=== PATIENT | female | born 1975 | race Caucasian/White ===

== ENCOUNTER 2019-08-22 01:15 | Day surgery (SDC) | payer BC, SELFPAY ==
[2019-08-16 13:34] VITALS: BMI 29.5
[2019-08-22 08:09] VITALS: BP 118/80; PULSE 83; RESP 16; TEMP 36.6; O2SAT 95; BMI 29.9
--- NOTE | 2019-08-22 08:22 | P.PNAN_ITS ---
Anes - Initial Pre Proc Eval Procedure: Operation Date: 08/22/19 09:30 Proposed Procedures p Esophagogastroduodenoscopy - Pedro Thacker MD Date/Time: 08/22/19 08:22 Surgeon: Pedro Thacker MD Pre Op Diagnosis: Gerd/ Reflux Patient Data Age: 44 Gender: F Height: 1.63 m Weight: 78 kg Allergies Allergy/AdvReac Type Severity Reaction Status Date / Time morphine Allergy Unknown SERVERE Verified 08/16/19 13:01 INSTANT BOWDEN Penicillins Allergy Unknown THROAT Verified 04/02/16 14:42 ITCHING AND SWEELLING prochlorperazine Allergy Unknown HIVES Verified 04/02/16 14:42 Home Medications Medication Instructions Recorded Confirmed Type albuterol sulfate 2 puff INHALATION QID PRN 06/27/19 08/16/19 History ergocalciferol (vitamin D2) 50,000 unit PO 2XW 06/27/19 08/16/19 History spironolactone 100 mg PO DAILY 06/27/19 08/16/19 History tapentadol [Nucynta] 50 mg PO BID PRN 06/27/19 08/16/19 History benralizumab [Fasenra] 30 mg SUBCUT DIRECTED 08/16/19 08/16/19 History cetirizine [Zyrtec] 10 mg PO DAILY 08/16/19 08/16/19 History clotrimazole-betamethasone 1 - 2 applic TOPICAL 2XW PRN 08/16/19 08/16/19 History dextroamphetamine-amphetamine 30 mg PO DAILY 08/16/19 08/16/19 History fluticasone propion-salmeterol 1 inh INHALATION BID 08/16/19 08/16/19 History [Advair Diskus] ipratropium-albuterol 3 ml INHALATION Q4H PRN 08/16/19 08/16/19 History montelukast [Singulair] 10 mg PO DAILY 08/16/19 08/16/19 History paroxetine HCl [Paxil] 20 mg PO HS 08/16/19 08/16/19 History trazodone 25 mg PO PRN PRN 08/16/19 08/16/19 History Patient hx anesthesia problems: none Family hx anesthesia problems: none [facility] Past Medical History Medical History (Updated 08/22/19 @ 08:24 by Phil Raza MD) Asthma Endometriosis Gastroesophageal reflux disease Hemorrhoids Surgical History Surgical History (Updated 08/22/19 @ 08:24 by Phil Raza MD) History of Juju fundoplication JUJU FUNDOPLICATION X2 MOST RECENT 2016 Social History Social History Smoking status: Never smoker Alcohol intake: current Gender identity (if verbalized by the patient): Female Anes - Eval Final PreProcedure Day of Procedure 08/22/19 08:22 Patient weight: overweight Heart: regular rate and rhythm Lungs: clear to auscultation and normal air movement Airway: Mallampati scale class II Neurological: alert and oriented Last oral intake: >/= 8 hours ASA classification: III Emergent: no Anesthetic plan: proceed Anesthesia type and monitoring: general GIVS Informed Consent: The patient's anesthetic plan and its attendant risks and benefits were discussed with the patient/family/POA. Questions were solicited and answers provided to the satisfaction of the patient/family/POA.
[2019-08-22] MEDS: LACTATED RINGERS 1,000 ML 150 ML IV CONT (08:53)
--- NOTE | 2019-08-22 09:15 | PM.HPGS ---
History of Present Illness History of Present Illness Consent: Risks, benefits, and alternatives have been discussed and questions answered. Patient agrees to proceed with procedure. Chief complaint: Gerd/ Reflux Narrative: Sayda Campuzano is a 44 year old female with experiencing difficulty with swallowing. She has had a fundoplication twice. She is known to have an esophageal diverticulum and feels that food may be getting caught there. At times drinking some the cold will hang up and she will expect rate which she swallow. Milkshakes give her difficulty. At times particles of food or scans of grapes can be expectorated along with some saliva. PMFSH Past Medical History Medical History Asthma Endometriosis Gastroesophageal reflux disease Hemorrhoids Surgical History Surgical History History of Julián fundoplication JULIÁN FUNDOPLICATION X2 MOST RECENT 2016 Family History Family History Other Family history of arthritis Family history of mental disorder Social History Social History Smoking status: Never smoker Alcohol intake: current Gender identity (if verbalized by the patient): Female Meds Home Medications and Allergies Home Medications Medication Instructions Recorded Confirmed Type albuterol sulfate 2 puff INHALATION QID PRN 06/27/19 08/16/19 History ergocalciferol (vitamin D2) 50,000 unit PO 2XW 06/27/19 08/16/19 History spironolactone 100 mg PO DAILY 06/27/19 08/16/19 History tapentadol [Nucynta] 50 mg PO BID PRN 06/27/19 08/16/19 History benralizumab [Fasenra] 30 mg SUBCUT DIRECTED 08/16/19 08/16/19 History cetirizine [Zyrtec] 10 mg PO DAILY 08/16/19 08/16/19 History clotrimazole-betamethasone 1 - 2 applic TOPICAL 2XW PRN 08/16/19 08/16/19 History dextroamphetamine-amphetamine 30 mg PO DAILY 08/16/19 08/16/19 History fluticasone propion-salmeterol 1 inh INHALATION BID 08/16/19 08/16/19 History [Advair Diskus] ipratropium-albuterol 3 ml INHALATION Q4H PRN 08/16/19 08/16/19 History montelukast [Singulair] 10 mg PO DAILY 08/16/19 08/16/19 History paroxetine HCl [Paxil] 20 mg PO HS 08/16/19 08/16/19 History trazodone 25 mg PO PRN PRN 08/16/19 08/16/19 History Allergies Allergy/AdvReac Type Severity Reaction Status Date / Time morphine Allergy Unknown SERVERE Verified 08/22/19 08:47 INSTANT BOWDEN Penicillins Allergy Unknown THROAT Verified 08/22/19 08:47 ITCHING AND SWEELLING prochlorperazine Allergy Unknown HIVES Verified 08/22/19 08:47 Vital Signs Vital Signs - 24 hr 08/22/19 08:09 Temperature 36.6 C Pulse Rate 83 Respiratory Rate 16 Blood Pressure 118/80 Pulse Oximetry 95 Exam Const: General: alert Orientation/consciousness: patient oriented x3 Resp: Auscultation: clear to auscultation bilaterally Cardio: Rhythm: regular rhythm GI: GI Palp: Yes Soft to palpation and No Tenderness to palpation present (GI) Neuro: General: patient oriented x3 Assessment and Plan Assessment and plan (1) Dysphagia: Code(s): R13.10 - Dysphagia, unspecified Status: Acute Assessment and Plan: EGD with possible biopsy or dilatation or cautery.
[2019-08-22] MEDS: BENZOCAINE (*SP) 60 ML SPRAY CAN (HURRICAINE) 1 SPRAY MUCOUS MEM (09:26)
[2019-08-22 09:37] VITALS: BP 106/73; PULSE 80; RESP 17; O2SAT 99
[2019-08-22 09:47] VITALS: BP 118/77; PULSE 77; RESP 22; O2SAT 99
[2019-08-22 09:57] VITALS: BP 110/73; PULSE 73; RESP 19; O2SAT 100
== END 2019-08-22 10:08 | disposition home or self-care (01) ==
PROVIDERS: PCP Physician Assistant; Visit Provider Internal Medicine Gastroenterology
PROC: 0DJ08ZZ Inspection of Upper Intestinal Tract, Via Natural or Artificial Opening Endoscopic (ICD-10-PCS; CPT 43235; principal; 2019-08-22 09:30)
DX: K22.5 Diverticulum of esophagus, acquired (principal); K21.9 Gastro-esophageal reflux disease without esophagitis; Z98.84 Bariatric surgery status; J45.909 Unspecified asthma, uncomplicated
CPT/HCPCS: 43239; 88305; J2704; J7120

== ENCOUNTER → 2019-08-28 08:53 | Outpatient (CLI) | payer BC, SELFPAY ==
--- NOTE | ~2019-08-28 | US_ITS ---
US breast LT limited DATE: 08/28/2019 09:08 INDICATION: Six-month follow-up of probable benign finding 9:00 1 cm from nipple TECHNIQUE: High-resolution ultrasound imaging and color flow signal imaging targeted at 9:00 1 cm fro m nipple COMPARISON: 03/05/2019 limited left breast ultrasound FINDINGS: There is a stable circumscribed benign appearing likely intramammary lymph node at 9:00 1 c m from nipple, without significant change since 03/05/2019. IMPRESSION: BI-RADS Category 2: Benign Recognition: Routine annual mammographic screening Reviewed, dictated and finalized at [facility]. Reviewed, dictated and finalized at [facility]. ICE/HOME HEALTH AIDE
== END ==
PROVIDERS: PCP Physician Assistant; Visit Provider Obstetrics & Gynecology
DX: R92.8 Other abnormal and inconclusive findings on diagnostic imaging of breast (principal)
CPT/HCPCS: 76642

== ENCOUNTER → 2021-01-27 16:41 | Outpatient (CLI) | payer BC, SELFPAY ==
--- NOTE | ~2021-01-27 | XR_ITS ---
EXAMINATION: XR shoulder RT min 2V EXAM DATE: 01/27/2021 16:58 INDICATION: Primary osteoarthritis of right shoulder . TECHNIQUE: The following right shoulder projections obtained: frontal projection with internal rotati on, frontal projection with external rotation, Grashey, and axillary (4+ views). There is no prior s tudy for comparison. FINDINGS: No evidence of right shoulder rotator cuff calcific tendinosis. There is no glenohumeral joint, mild acromioclavicular joint primary osteoarthritis. There are no acute fractures or dislocat ions identified. There is no subcutaneous gas. The soft tissue is unremarkable. There are no radi opaque foreign bodies. IMPRESSION: Mild right acromioclavicular joint osteoarthritis. Reviewed, dictated and finalized at [facility].
== END ==
PROVIDERS: PCP Physician Assistant
DX: M19.011 Primary osteoarthritis, right shoulder (principal)
CPT/HCPCS: 73030

== ENCOUNTER 2022-09-24 00:48 | Day surgery (SDC) | payer BC, SELFPAY ==
[2022-09-15 13:39] VITALS: BMI 33.0
--- NOTE | 2022-09-15 14:14 | PC.NURSE ---
Report to the Outpatient Waiting Room, entrance under the green pavilion located off [facility], at time _0630 on date _09/24/22 . Planned Procedure Time: 0830 . Time changes happen often and if your time is changed the preop area will call you the afternoon before. - You and your visitor will be asked to self-screen and do not enter if you have any COVID symptoms. - Only one visitor is requested with a max of two and NO children visitors are allowed at this time. - The patient visitor may be requested to leave or wait in car when not with patient due to distancing restrictions. - A mask is optional within the hospital at this time. Patients may have clear liquids (water, carbonated beverages, clear teas, apple juice) until 3 hours prior to surgery with a maximum of 20 ounces. - No food from midnight until time of surgery - Take the following medications with a SIP of water the morning of surgery: _PAXIL, NUCYNTA, ALBUTEROL PRN, MUSCLE RELAXANT IF NEEDED DO NOT STOP ANY OF YOUR OTHER PRESCRIPTION MEDICATIONS PRIOR TO SURGERY ?EXCEPT THE FOLLOWING Medications to discontinue per physician N/A Date to take last dose___N/A Please no make-up, nail malay, hairspray, perfume, deodorant, or body powder the day of surgery. No jewelry (including any body piercings) or valuables the day of surgery, leave them at home. Please take a shower or bath the night before, or the morning of, surgery with an antibacterial soap. Wear comfortable, loose fitting clothing. Children are encouraged to wear pajamas. - Jewelry must be removed prior to entering the operating room. Rings and piercings that are not removed may be cut off. - The hospital will not accept responsibility for valuables. - Please leave all valuables, including medications, at home the day of surgery. If you are going home after surgery, a licensed marine engine driver must drive you home. - NO public transportation without another adult if you receive anesthesia. - We recommend that an adult stay with you for 24 hours following discharge. - We also recommend that you do not drive, make important decision, drink alcoholic beverages, or take any drugs that were not prescribed by your health care provider for at least 24 hours after your discharge time. Follow any additional instructions given to you from your surgeon. If you or anyone in your household have experienced Covid symptoms in the past week, please notify your surgeon or the nurse liaison at the phone number below for possible testing. Telephone instructions given to _SHARYN and asked if any additional questions and then verbalized understanding. Patient advised to call surgeon office or pre surgery nurse liaison [phone] if any additional questions.
--- NOTE | 2022-09-22 11:54 | PM.IMHP ---
H&P: HPI History of Present Illness Date/Time: 09/22/22 11:54 Chief Complaint: Pelvic pain Narrative: This 47-year-old female status post hysterectomy is admitted for diagnostic laparoscopy destruction of endometriosis and probable lysis of adhesions. She had pain discomfort dyspareunia for a time she has a history of endometriosis. Risks and benefits of this procedure reviewed including not exclusive of , aspiration, bleeding, transfusion, perforation under to bowel, bladder, ureters, or other internal organs with need for open laparotomy. She received the [employer] handout entitled laparoscopy. She had all questions answered. She asked to proceed PMFSH Past Medical History Medical History Asthma Diverticulosis Endometriosis Fibromyalgia Gastroesophageal reflux disease Hemorrhoids History of stress test (~07/2019) IBS (irritable bowel syndrome) Surgical History Surgical History History of cholecystectomy (~1999) History of endometrial ablation (~2008) with Tubal Ligation History of hysterectomy (~2012) History of Juju fundoplication (~1999) History of Juju fundoplication (~2015) History of sinus surgery (~2000) History of sinus surgery (~2002) Family History Family History Other Family history of arthritis Family history of mental disorder Social History Social History Smoking status: Never smoker Alcohol intake: current Substance use: never Substance use type: does not use Living arrangements: with family Gender identity (if verbalized by the patient): Female Spiritual care concerns: No Meds Home Medications and Allergies Home Medications Medication Instructions Recorded Confirmed Type albuterol sulfate 90 mcg/actuation 2 puff inhalation QID PRN 06/27/19 09/15/22 History aerosol inhaler Shortness Of Breath Or Wheezing tapentadol 50 mg tablet (Nucynta) 50 mg PO BID PRN Pain 06/27/19 09/15/22 History cetirizine 10 mg capsule (Zyrtec) 10 mg PO DAILY 08/16/19 09/15/22 History paroxetine HCl 20 mg tablet (Paxil) 40 mg PO HS 08/16/19 09/15/22 History cyclobenzaprine 10 mg tablet 10 mg PO TID PRN Spasms 12/17/21 09/15/22 History dextroamphetamine-amphetamine 30 30 mg PO DAILY 12/17/21 09/15/22 History mg tablet (Adderall) metaxalone 400 mg tablet 800 mg PO TID PRN Spasms 09/15/22 09/15/22 History Allergies Allergy/AdvReac Type Severity Reaction Status Date / Time morphine Allergy Severe Migraine Verified 09/15/22 14:13 povidone-iodine Allergy Severe Rash Verified 09/15/22 14:13 [From Betadine] yellow dye Allergy Severe Rash Verified 09/15/22 14:13 Penicillins Allergy Intermediate THROAT Verified 09/15/22 14:13 ITCHING AND SWELLING prochlorperazine Allergy Intermediate HIVES Verified 09/15/22 14:13 Exam Const: General: cooperative, healthy appearing, comfortable and well groomed Orientation/consciousness: oriented to person, oriented to place and oriented to time HENMT: Head: normal to inspection Resp: Effort & Inspection: normal respiratory effort Cardio: Rate: regular rate Rhythm: regular rhythm Heart sounds: S1 normal heart sound present and S2 normal heart sound present GI: Inspection: normal to inspection Auscultation: normal bowel sounds : Speculum Exam - Vagina: normal appearance of the vagina Speculum Exam - Cervix: normal appearance of the cervix and Cervix absent Bimanual exam- vagina & uterus: uterus absent Bimanual Exam- Adnexa, other: tender bilaterally Assessment and Plan Assessment and plan (1) Pelvic pain: Code(s): R10.2 - Pelvic and perineal pain Status: Acute (2) Endometriosis: Code(s): N80.9 - Endometriosis, unspecified Status: Acute Plan Laparoscopy/lysis o
[2022-09-24] VITALS (7 sets, daily range): BP systolic 105–128; BP diastolic 72–85; PULSE 71–80; RESP 12–18; TEMP 36.1–36.4; O2SAT 98–100
[2022-09-24] MEDS: LACTATED RINGERS 1,000 ML 30 ML IV CONT (07:00)
--- NOTE | 2022-09-24 07:08 | WPDHPUPDATE1 ---
History and Physical Update Update Date/Time: 09/24/22 07:08 History and Physical has been reviewed, including an updated exam of the patient. There are NO changes in the patient's condition. Risks, benefits, and alternatives have been discussed and questions answered. Patient agrees to proceed with procedure.
[2022-09-24] MEDS: ACETAMINOPHEN 500 MG TABLET 1000 MG PO (07:12)
[2022-09-24] MEDS: KETOROLAC 15 MG/ML VIAL (*BKC) IV PUSH (07:13)
--- NOTE | 2022-09-24 07:53 | WPDANESEPPF ---
Anes - Initial Pre Proc Eval Procedure: Operation Date: 09/24/22 08:30 Proposed Procedures p Diagnostic Laparoscopy with Cautery of Endometriosis, Lysis of Pelvic Adhesions - Simón Young MD Date/Time: 09/24/22 07:53 Surgeon: Simón Young MD Pre Op Diagnosis: Pelvic Pain, Endometriosis, Pelvic Adhesions Patient Data Age: 47 Gender: F Height: 1.63 m Weight: 87.5 kg Allergies Allergy/AdvReac Type Severity Reaction Status Date / Time morphine Allergy Severe Migraine Verified 09/15/22 14:13 povidone-iodine Allergy Severe Rash Verified 09/15/22 14:13 [From Betadine] yellow dye Allergy Severe Rash Verified 09/15/22 14:13 Penicillins Allergy Intermediate THROAT Verified 09/15/22 14:13 ITCHING AND SWELLING prochlorperazine Allergy Intermediate HIVES Verified 09/15/22 14:13 Home Medications Medication Instructions Recorded Confirmed Type albuterol sulfate 90 mcg/actuation 2 puff inhalation QID PRN 06/27/19 09/15/22 History aerosol inhaler Shortness Of Breath Or Wheezing tapentadol 50 mg tablet (Nucynta) 50 mg PO BID PRN Pain 06/27/19 09/15/22 History cetirizine 10 mg capsule (Zyrtec) 10 mg PO DAILY 08/16/19 09/15/22 History paroxetine HCl 20 mg tablet (Paxil) 40 mg PO HS 08/16/19 09/15/22 History cyclobenzaprine 10 mg tablet 10 mg PO TID PRN Spasms 12/17/21 09/15/22 History dextroamphetamine-amphetamine 30 30 mg PO DAILY 12/17/21 09/15/22 History mg tablet (Adderall) metaxalone 400 mg tablet 800 mg PO TID PRN Spasms 09/15/22 09/15/22 History hydrocodone 5 mg-acetaminophen 325 1 tablet PO Q4H PRN pain #20 tabs 09/24/22 Rx mg tablet Patient hx anesthesia problems: post op nausea/vomiting Family hx anesthesia problems: none Results Review: All pre-operative results and documents have been reviewed as part of the pre-operative evaluation. [facility] Past Medical History Medical History Asthma Diverticulosis Endometriosis Fibromyalgia Gastroesophageal reflux disease Hemorrhoids History of stress test (~07/2019) IBS (irritable bowel syndrome) Surgical History Surgical History History of cholecystectomy (~1999) History of endometrial ablation (~2008) with Tubal Ligation History of hysterectomy (~2012) History of Juju fundoplication (~1999) History of Juju fundoplication (~2015) History of sinus surgery (~2000) History of sinus surgery (~2002) Family History Family History Other Family history of arthritis Family history of mental disorder Social History Social History Smoking status: Never smoker Alcohol intake: current Substance use: never Substance use type: does not use Living arrangements: with family Gender identity (if verbalized by the patient): Female Spiritual care concerns: No Anes - Eval Final PreProcedure Day of Procedure 09/24/22 07:53 Patient weight: obese Heart: regular rate and rhythm Lungs: clear to auscultation Airway: Mallampati scale class II Neurological: alert and oriented Last oral intake: >/= 8 hours ASA classification: II Emergent: no Anesthetic plan: proceed Anesthesia type and monitoring: general ETT and standard monitoring Results Review: All pre-operative results and documents have been reviewed as part of the pre-operative evaluation. Informed Consent: The patient's anesthetic plan and its attendant risks and benefits were discussed with the patient/family/POA. Questions were solicited and answers provided to the satisfaction of the patient/family/POA.
--- NOTE | 2022-09-24 08:42 | W.PM.PROC2 ---
Procedure Note - Detailed Date of Procedure 09/24/22 Pre-op Diagnosis Pelvic Pain, Endometriosis, Pelvic Adhesions Post-op Diagnosis Other ( pelvic pain /right cyst/pelvic adhesions) Procedure Performed laparoscopic RSO lysis of adhesions Surgeon Simón Young MD Anesthesia General Indications this 47-year-old status post hysterectomy with severe pain despite Findings absent uterus cervix. Multiple adhesions across the vaginal cuff. Normal-appearing left ovary and tube, normal-appearing right tube and ovarian cyst Description of Procedure patient was draped sterile fashion placed in the dorsal lithotomy position she anesthesia with speculum placed in posterior fornix vagina. A sponge stick was placed the weighted speculum removed and the bladder emptied of clear urine. The weighted speculum was removed gloves were changed. An infraumbilical incision made the Veress needle passed in the abdomen. With CO2 gas to 15. 5Mm trocar advanced under direct visualization assuring injury. Patient placed in Trendelenburg and a suprapubic incision made. The 5mm trocar advanced under direct visualization assuring no injury. The right lower quadrant incision made the 10mm trocar advanced under direct visualization assuring no injury. The multiple adhesions were seen along the cuff especially to the left these were sharply dissected until the left ovary and tube could be seen and they appeared completely normal. The right ovary was very vascular and small ovarian cyst seen. The LigaSure was placed over the infundibulopelvic on the right clamped burned cut was then placed in Endo-Catch and removed through the abdomen. Irrigation undertaken until clear. Lower sites removed after gas removed from the abdomen. The upper site removed and the incisions closed with 4 Monocryl and glue. Instruments removed from the vagina. The patient was awakened and went to recovery in satisfactory condition. All sponge, needle, instrument counts were correct. There were no immediate complications Estimated Blood Loss 5 Drains No Packing No Pathology Yes Complications No immediate complications Condition Stable Disposition PACU
[2022-09-24] MEDS: fentaNYL CITRATE INJ (*CRX) 100 MCG/2 ML VIAL 25 MCG IV PUSH ×4 (09:17→09:35)
[2022-09-24] MEDS: oxyCODONE HCL (*CRX) 5 MG TAB IR PO (10:47)
== END 2022-09-24 11:10 | disposition home or self-care (01) ==
PROVIDERS: PCP Physician Assistant; Visit Provider Obstetrics & Gynecology
PROC: (CPT 49320; principal; 2022-09-24 08:30)
DX: R10.2 Pelvic and perineal pain (principal); N80.9 Endometriosis, unspecified; N94.10 Unspecified dyspareunia; N83.201 Unspecified ovarian cyst, right side; J45.909 Unspecified asthma, uncomplicated; K21.9 Gastro-esophageal reflux disease without esophagitis
CPT/HCPCS: 58661; 36415; 86850; 86900; 86901; 88305; A9270; J1100; J1885; J2250; J2405; J2704; J3010; J7030; J7120

== ENCOUNTER 2022-11-17 01:28 | Day surgery (SDC) | payer BC, SELFPAY ==
[2022-11-05 10:57] VITALS: BMI 32.5
--- NOTE | 2022-11-16 17:28 | PM.HPGS ---
History of Present Illness History of Present Illness Consent: Risks, benefits, and alternatives have been discussed and questions answered. Patient agrees to proceed with procedure. Chief complaint: pain, constipation Narrative: Sayda Campuzano is a 47 year old female referred for investigation of a change in bowel habits. She has also had lower abdominal pain. Recent laparoscopic examination for endometriosis revealed adhesions which were lysed Review of Systems Review of Systems: All systems reviewed & are unremarkable except as noted in HPI and below PMFSH Past Medical History Medical History Asthma Diverticulosis Dysphagia Endometriosis Fibromyalgia Gastroesophageal reflux disease Hemorrhoids History of stress test (~07/2019) IBS (irritable bowel syndrome) Surgical History Surgical History History of cholecystectomy (~1999) History of endometrial ablation (~2008) with Tubal Ligation History of hysterectomy (~2012) History of Juju fundoplication (~1999) History of Juju fundoplication (~2015) History of sinus surgery (~2000) History of sinus surgery (~2002) Family History Family History Other Family history of arthritis Family history of mental disorder Social History Social History Smoking status: Never smoker Alcohol intake: current Alcohol use details: rare Substance use: never Substance use type: does not use Living arrangements: with family Gender identity (if verbalized by the patient): Female Spiritual care concerns: No Meds Home Medications and Allergies Home Medications Medication Instructions Recorded Confirmed Type albuterol sulfate 90 mcg/actuation 2 puff inhalation QID PRN 06/27/19 11/05/22 History aerosol inhaler Shortness Of Breath Or Wheezing tapentadol 50 mg tablet (Nucynta) 50 mg PO BID PRN Pain 06/27/19 11/05/22 History cetirizine 10 mg capsule (Zyrtec) 10 mg PO DAILY 08/16/19 11/05/22 History paroxetine HCl 20 mg tablet (Paxil) 40 mg PO HS 08/16/19 11/05/22 History cyclobenzaprine 10 mg tablet 10 mg PO TID PRN Spasms 12/17/21 11/05/22 History dextroamphetamine-amphetamine 30 30 mg PO DAILY 12/17/21 11/05/22 History mg tablet (Adderall) metaxalone 400 mg tablet 800 mg PO TID PRN Spasms 09/15/22 11/05/22 History hydrocodone 5 mg-acetaminophen 325 1 tablet PO Q4H PRN pain #20 tabs 09/24/22 11/05/22 Rx mg tablet dicyclomine 20 mg tablet 20 mg PO TID #90 tabs 11/17/22 Rx Allergies Allergy/AdvReac Type Severity Reaction Status Date / Time morphine Allergy Severe Migraine Verified 11/17/22 11:20 povidone-iodine Allergy Severe Rash Verified 11/17/22 11:20 [From Betadine] yellow dye Allergy Severe Rash Verified 11/17/22 11:20 Penicillins Allergy Intermediate THROAT Verified 11/17/22 11:20 ITCHING AND SWELLING prochlorperazine Allergy Intermediate HIVES Verified 11/17/22 11:20 Exam Resp: Auscultation: clear to auscultation bilaterally Cardio: Rate: regular rate Rhythm: regular rhythm GI: GI Palp: Yes Soft to palpation and No Tenderness to palpation present (GI) Assessment and Plan Assessment and plan (1) Change in bowel habits: Code(s): R19.4 - Change in bowel habit Status: Acute Assessment and Plan: Colonoscopy with possible biopsy or polypectomy or cautery or injection of substances.
--- NOTE | 2022-11-17 10:34 | WPDANESEPPF ---
Anes - Initial Pre Proc Eval Procedure: Operation Date: 11/17/22 12:30 Proposed Procedures p Colonoscopy - Pedro Thacker MD Date/Time: 11/17/22 10:34 Surgeon: Pedro Thacker MD Pre Op Diagnosis: pain, constipation Patient Data Age: 47 Gender: F Height: 1.63 m Weight: 86 kg Allergies Allergy/AdvReac Type Severity Reaction Status Date / Time morphine Allergy Severe Migraine Verified 11/17/22 11:20 povidone-iodine Allergy Severe Rash Verified 11/17/22 11:20 [From Betadine] yellow dye Allergy Severe Rash Verified 11/17/22 11:20 Penicillins Allergy Intermediate THROAT Verified 11/17/22 11:20 ITCHING AND SWELLING prochlorperazine Allergy Intermediate HIVES Verified 11/17/22 11:20 Home Medications Medication Instructions Recorded Confirmed Type albuterol sulfate 90 mcg/actuation 2 puff inhalation QID PRN 06/27/19 11/05/22 History aerosol inhaler Shortness Of Breath Or Wheezing tapentadol 50 mg tablet (Nucynta) 50 mg PO BID PRN Pain 06/27/19 11/05/22 History cetirizine 10 mg capsule (Zyrtec) 10 mg PO DAILY 08/16/19 11/05/22 History paroxetine HCl 20 mg tablet (Paxil) 40 mg PO HS 08/16/19 11/05/22 History cyclobenzaprine 10 mg tablet 10 mg PO TID PRN Spasms 12/17/21 11/05/22 History dextroamphetamine-amphetamine 30 30 mg PO DAILY 12/17/21 11/05/22 History mg tablet (Adderall) metaxalone 400 mg tablet 800 mg PO TID PRN Spasms 09/15/22 11/05/22 History hydrocodone 5 mg-acetaminophen 325 1 tablet PO Q4H PRN pain #20 tabs 09/24/22 11/05/22 Rx mg tablet Patient hx anesthesia problems: none Family hx anesthesia problems: none Results Review: All pre-operative results and documents have been reviewed as part of the pre-operative evaluation. [facility] Past Medical History Medical History (Updated 11/17/22 @ 10:36 by Phil Raza MD) Asthma Diverticulosis Dysphagia Endometriosis Fibromyalgia Gastroesophageal reflux disease Hemorrhoids History of stress test (~07/2019) IBS (irritable bowel syndrome) Surgical History Surgical History History of cholecystectomy (~1999) History of endometrial ablation (~2008) with Tubal Ligation History of hysterectomy (~2012) History of Juju fundoplication (~1999) History of Juju fundoplication (~2015) History of sinus surgery (~2000) History of sinus surgery (~2002) Family History Family History Other Family history of arthritis Family history of mental disorder Social History Social History Smoking status: Never smoker Alcohol intake: current Alcohol use details: rare Substance use: never Substance use type: does not use Living arrangements: with family Gender identity (if verbalized by the patient): Female Spiritual care concerns: No Anes - Eval Final PreProcedure Day of Procedure 11/17/22 10:34 Patient weight: obese Heart: regular rate and rhythm Lungs: clear to auscultation Airway: Mallampati scale class II Neurological: alert and oriented Last oral intake: >/= 8 hours ASA classification: II Emergent: no Anesthetic plan: proceed Anesthesia type and monitoring: general GIVS and standard monitoring Results Review: All pre-operative results and documents have been reviewed as part of the pre-operative evaluation. Informed Consent: The patient's anesthetic plan and its attendant risks and benefits were discussed with the patient/family/POA. Questions were solicited and answers provided to the satisfaction of the patient/family/POA.
[2022-11-17 11:21] VITALS: BP 139/85; PULSE 95; RESP 18; TEMP 36.1; O2SAT 97
[2022-11-17] MEDS: LACTATED RINGERS 1,000 ML 150 ML IV CONT (11:38)
[2022-11-17 12:45] VITALS: BP 107/76; PULSE 73; RESP 16; O2SAT 100
[2022-11-17 12:55] VITALS: BP 113/76; PULSE 76; RESP 20; O2SAT 100
[2022-11-17 13:05] VITALS: BP 119/82; PULSE 71; RESP 20; O2SAT 100
== END 2022-11-17 13:25 | disposition home or self-care (01) ==
PROVIDERS: PCP Physician Assistant; Visit Provider Internal Medicine Gastroenterology
PROC: 0DJD8ZZ Inspection of Lower Intestinal Tract, Via Natural or Artificial Opening Endoscopic (ICD-10-PCS; CPT 45378; principal; 2022-11-17 12:30)
DX: Z12.11 Encounter for screening for malignant neoplasm of colon (principal); K57.30 Diverticulosis of large intestine without perforation or abscess without bleeding; R19.4 Change in bowel habit; J45.909 Unspecified asthma, uncomplicated; K21.9 Gastro-esophageal reflux disease without esophagitis; M79.7 Fibromyalgia; K58.9 Irritable bowel syndrome, unspecified; E66.9 Obesity, unspecified; Z68.32 Body mass index [BMI] 32.0-32.9, adult; Z79.51 Long term (current) use of inhaled steroids; Z79.891 Long term (current) use of opiate analgesic
CPT/HCPCS: 45378; J2704; J7120

== ENCOUNTER 2024-02-08 15:12 | Outpatient (CLI) | payer BC, SELFPAY ==
--- NOTE | ~2024-02-08 | US_ITS ---
EXAMINATION:US venous doppler LE LT INDICATION:Left lower extremity pain TECHNIQUE: Multiple grayscale, color flow and Doppler images of the left lower extremity deep venous systems were obtained and reviewed. COMPARISON:No prior studies for comparison. FINDINGS: The common femoral, superficial femoral and popliteal veins demonstrate normal respiratory variation, augmentation and compressibility. Color flow is also seen within the posterior tibial, pe roneal, greater saphenous and profunda veins. IMPRESSION: 1: No lower extremity deep venous thrombosis. Reviewed, dictated and finalized at location B.
== END 2024-02-08 15:13 ==
LOC: MICIMG 15:13
PROVIDERS: PCP Physician Assistant; Visit Provider Physician Assistant
DX: M79.605 Pain in left leg (principal)
CPT/HCPCS: 93971

== ENCOUNTER 2024-04-05 15:46 | Outpatient (CLI) | payer BC, SELFPAY ==
--- NOTE | ~2024-04-05 | MM_ITS ---
EXAMINATION: MM screening kemi BI w edgard HISTORY: Screening mammogram TECHNIQUE: Craniocaudal and mediolateral oblique 3-D tomosynthesis images were obtained and synthetic 2-D images were generated. CAD analysis was submitted and interpreted. COMPARISON: 02/16/2019 BREAST PARENCHYMAL COMPOSITION:Not Dense. There are scattered areas of fibroglandular density. FINDINGS: No suspicious mass, calcification, or architectural distortion are identified in either johnnie ast to suggest malignancy. There has been no suspicious interval change. IMPRESSION: No mammographic evidence of malignancy. Recommend routine screening mammography in one year. BI-RADS Category 1: Negative Reviewed, dictated and finalized at location .
== END 2024-04-05 15:47 | disposition home or self-care (01) ==
LOC: ANHIMG 15:47
PROVIDERS: PCP Physician Assistant; Visit Provider Obstetrics & Gynecology
DX: Z12.31 Encounter for screening mammogram for malignant neoplasm of breast (principal)
CPT/HCPCS: 77063; 77067

== ENCOUNTER 2024-12-03 10:55 | Outpatient (CLI) | payer BC, SELFPAY ==
--- NOTE | ~2024-12-03 | MR_ITS ---
EXAMINATION: MR lumbar spine wo con DATE: 12/03/2024 11:27 INDICATION: Lumbar radiculopathy TECHNIQUE: Magnetic resonance imaging (MRI) of the lumbar spine was performed without intravenous con trast. Sequences included sagittal T2-weighted FSE, sagittal T2-weighted FS FSE, sagittal T1-weighted FSE, and axial T2-weighted FSE. COMPARISON: 10/22/2015 FINDINGS: Minimal upper lumbar levocurvature. Sagittal alignment is normal. Chronic appearing mild likely physi ologic anterior wedging at T11 and T12. Lumbar vertebral body heights are normal. There are Schmorl's nodes at several of the endplates from the inferior endplate of T10 through the superior endplate of L4. Normal marrow signal. Moderate disc height loss at T10-T11, mild disc height loss at T11-T12 and T12-L1 and mild right-sided disc height loss at L1-L2 and L2-L3. The conus medullaris terminates at L1. There is normal signal in the caudal spinal cord. Paravertebral soft tissues are unremarkable. Th e following disc levels are specifically discussed: T12-L1: Disc is bulging. There is bilateral facet joint osteoarthritis. There is no neural foraminal stenosis. There is mild central canal stenosis. L1-L2: Disc is mildly bulging. There is mild to moderate left and moderate right facet joint osteoart hritis. There is no neural foraminal stenosis. There is minimal central canal stenosis. L2-L3: Disc is mildly bulging. There is mild left and moderate right facet joint osteoarthritis. Ther e is left neural foraminal stenosis. There is mild central canal stenosis. L3-L4: Disc is mildly bulging with annular fissure. There is moderate bilateral facet joint osteoarth ritis. There is mild bilateral neural foraminal stenosis. There is mild central canal stenosis. L4-L5: Small right foraminal disc protrusion. There is moderate bilateral facet joint osteoarthritis. There is mild bilateral neural foraminal stenosis. There is mild central canal stenosis. L5-S1: The disc does not extend beyond the endplate margin. There is altered left and severe right fa cet joint osteoarthritis. There is no neural foraminal stenosis. There is no central canal stenosis. IMPRESSION: 1. Mild interval progression in sterile mild lumbar spondylosis. Reviewed, dictated and finalized at location A.
== END 2024-12-03 10:56 | disposition home or self-care (01) ==
LOC: GOSHIMG 10:55
DX: M43.06 Spondylolysis, lumbar region (principal)
CPT/HCPCS: 72148

== ENCOUNTER 2024-12-19 13:02 | Outpatient (CLI) | payer BC, SELFPAY ==
--- NOTE | ~2024-12-19 | XR_ITS ---
XR hip RT min 2V 12/19/2024 13:27 Indication: Right hip pain Procedure: 2 views right hip Comparison: No prior studies for comparison. Findings: No fracture, subluxation or dislocation. No soft tissue abnormality. No foreign bodies. The re is mild osteoarthritis of the right hip. Impression: 1: Mild osteoarthritis of the right hip. Reviewed, dictated and finalized at location A. Impression: 1: Mild osteoarthritis of the right hip.
== END 2024-12-19 13:03 | disposition home or self-care (01) ==
PROVIDERS: PCP Physician Assistant; Visit Provider Physician Assistant
DX: M16.11 Unilateral primary osteoarthritis, right hip (principal)
CPT/HCPCS: 73502

== ENCOUNTER 2024-12-24 11:54 | Outpatient (CLI) | payer BC, SELFPAY ==
--- NOTE | ~2024-12-24 | US_ITS ---
EXAMINATION: US soft tissue head and neck DATE: 12/24/2024 12:24 INDICATION: Neck swelling TECHNIQUE: Multiple ultrasound images of the neck were obtained. COMPARISON: None. FINDINGS: The right thyroid lobe measures 5.0 x 1.2 x 1.5 cm. The left thyroid lobe measures 4.3 x 1.4 x 1.6 c m. There are a few bilateral solid wider than tall hypoechoic nodules with smooth to ill-defined mar gins (TI-RADS 4, moderately suspicious , FNA if >=1.5 cm, annual followup is >=1 cm), the largest bethel suring 1.2 cm in maximal diameter in the left thyroid lobe. There is also a 4 mm TI RADS 1 anechoic c ystic nodule in the right thyroid lobe. Overall this appears without significant interval change sinc e prior study from 06/30/2016. There are a few normal-sized bilateral cervical lymph nodes the larges t on the left with maximal short axis diameter of 9 mm. IMPRESSION: 1. Stable appearance of a multinodular goiter with largest 1.2 cm Ti RADS 4 nodule for which annual u ltrasound would be recommended. 2. Multiple normal-sized bilateral cervical lymph nodes. No pathologically enlarged lymphadenopathy o r other abnormal masses or fluid collections identified. Reviewed, dictated and finalized at location A. IMPRESSION: 1. Stable appearance of a multinodular goiter with largest 1.2 cm Ti RADS 4 nod ule for which annual ultrasound would be recommended. 2. Multiple normal-sized bilateral cervical lymph nodes. No pathologically enla rged lymphadenopathy or other abnormal masses or fluid collections identified.
== END 2024-12-24 11:55 | disposition home or self-care (01) ==
LOC: MICIMG 11:55
PROVIDERS: PCP Physician Assistant; Visit Provider Physician Assistant
DX: E04.2 Nontoxic multinodular goiter (principal)
CPT/HCPCS: 76536

== ENCOUNTER 2025-03-30 11:56 | Emergency (ER) | payer BC, OTHER, SELFPAY ==
--- NOTE | ~2025-03-30 | CT_ITS ---
Sayda Campuzano EXAMINATION: CT abdomen pelvis w con COMPARISON: None HISTORY: R labial abscess, perianal/rectal abscess?GI bleed TECHNIQUE: Axial images were obtained through the abdomen, pelvis post administration of IV contrast. Oral contrast was also administered. Coronal reconstruction images were obtained from the axial views. CT scan performed using dose optimization techniques including the following automated exposure control; adjustment of mA and/or kV; use of iterative reconstruction technique. Automatic exposure control was used to reduce radiation dose. Permanent radiation dose record is archived to PACS. FINDINGS: CT abdomen: LUNG BASES: Lung bases demonstrates calcified right granuloma. LIVER: Portal vein patent. No intrahepatic biliary duct dilatation. SPLEEN: Unremarkable. KIDNEYS: Right Kidney: Unremarkable. No calculi. No hydronephrosis. Left Kidney: Unremarkable. No calculi. No hydronephrosis ADRENAL GLANDS: Unremarkable. PANCREAS: Unremarkable. GALLBLADDER/BILIARY: Postcholecystectomy. STOMACH AND ESOPHAGUS: Small hiatal hernia. Postsurgical changes in the stomach. BOWEL/MESENTERY: Moderate diverticulosis. No colitis or diverticulitis. Appendix normal. Mesentery normal. No dilated small bowel loops. ADENOPATHY/RETROPERITONEUM: No lymphadenopathy. AORTA/VASCULATURE: Normal caliber aorta. FREE FLUID OR FREE AIR: No free fluid.. CT pelvis: SOLID ORGANS/REPRODUCTIVE: Post hysterectomy. No adnexal mass. BLADDER: Mild hyperemia and thickening of the bladder wall consistent with mild cystitis. OSSEOUS STRUCTURES: No acute osseous abnormality.No suspicious lesions. OVERLYING SOFT TISSUES: Unremarkable. IMPRESSION: 1. There is no perineum abscess identified. No soft tissue abnormality appreciated. 2. Probable cystitis Reviewed, dictated and finalized at location A. IMPRESSION: 1. There is no perineum abscess identified. No soft tissue abnormality apprecia debbie. 2. Probable cystitis
[2025-03-30 12:02] VITALS: BP 120/88; PULSE 80; RESP 20; TEMP 36.8; O2SAT 98
--- OUTSIDE RECORDS SUMMARY | 2025-03-30 12:40 | XMS_ITS | Clinical Summary ---
Author Organization [facility] Address [address] [facility] [place] [address] Care Team Providers Care Fast Food Shift Supervisor Name Role Phone Mirlande Bedoya Primary Care Pr ovider Darwin Cavazos MD Unavailable [phone] Source Comments [facility],non-owned Affiliates and Associated Physician Practices is amultiple site organization consisting of ambulatory clinics and hospital sitesin [place], [place], [place] and [place]. This disclosure is being madepursuant to the Care Everywhere program and may not contain all information available regarding this patient. Last updated 18.[facility] Allergies Active Allergy Reactions Criticality Noted Date Comments Adhesive Sensitivity Unknown 11/05/2021 Povidone Iodine Rash Medium 01/26/2022 Prochlorperazine Urticaria,Rash Medium 01/26/2016 Lidocaine Unknown 11/05/2021 Morphine Headache Medium 01/26/2016 Penicillins Anaphylaxis,Urticari a,S welling High 01/26/2016 Throat swelling Tartrazine Unknown 12/22/2022 Yellow Dye Rash Medium 07/18/2019 Medications * Be aware that medications may not be up to date on this document. Alwaysverify current medications with the patient. clobetasol (TEMOVATE) 0.05 % solution Apply to affected area 2 times daily as needed 1 6 Active vitamin D, ergocalciferol, (DRISDOL) 41366 UNITS capsule Take 50,000 Units by mouth every 7 days 0 6 Active cetirizine (ZYRTEC) 10 MG tablet Take 1 (one) tablet by mouth once daily Active diclofenac sodium (VOLTAREN) 1 % gel once daily as needed 0 6 Active diphenhydrAMINE (BENADRYL) 25 MG tablet Take 1 (one) tablet by mouth every 6 hours as needed for Itching Active amphetamine-dext roamphetamine XR 24hr (ADDERALL XR) 30 MG capsule Take 1 (one) capsule by mouth once daily Active clotrimazole-bet amethasone (LOTRISONE) 1-0.05 % cream Apply to affected area 2 times daily as needed 2 Active montelukast (SINGULAIR) 10 MG tablet Take 1 (one) tablet by mouth every evening 1 Active omeprazole (PRILOSEC) 20 MG capsule Take 1 (one) capsule by mouth once daily Active NUCYNTA 50 MG tablet Take 1 (one) tablet by mouth every 12 hours as needed FOR PAIN 1 Active albuterol HFA (PROVENTIL; VENTOLIN; PROAIR) 108 (90 Base) MCG/ACT inhaler Inhale 2 (two) puffs by mouth every 4 hours as needed Active fluticasone-salm eterol (ADVAIR/WIXELA) 500-50 MCG/DOSE inhaler Inhale 1 (one) puff by mouth 2 times daily 2 Active albuterol-ipratr opium (DUO-NEB) 0.5-2.5 (3) MG/3ML nebulizer solution Inhale 3 mL by mouth 4 times daily 2 Active folic acid (Folvite) 1 MG tablet 1 (one) tablet 3 Active estradiol (Estrace) 1 MG tablet estradiol 1 mg tablet Active clonazePAM (KlonoPIN) 0.5 MG tablet TAKE 1 TABLET BY MOUTH ONCE DAILY AT NOON 3 Active Fasenra Pen 30 MG/ML auto-injector pen 3 Active Nutritional Supplements (VITAMIN D BOOSTER PO) Active PARoxetine (Paxil) 20 MG tablet Take 1 (one) tablet by mouth once daily 3 Active metaxalone (Skelaxin) 400 MG tablet Take 1 (one) tablet by mouth 2 times daily as needed Active zafirlukast (Accolate) 20 MG tablet Take 1 (one) tablet by mouth 2 times daily 3 Active valACYclovir (Valtrex) 1 GM tablet Take 1 (one) tablet by mouth 2 times daily FOR 10 DAYS 3 Active ammonium lactate (Lac-Hydrin) 12 % cream APPLY TWICE DAILY TO DRY SKIN AREAS NEEDED Active Atogepant (Qulipta) 60 MG TABS Take 1 (one) tablet by mouth once daily 3 Active Immunizations Immunization Administration Dates Next Due COVID ROXANNA PRIMARY 18+YR 09/22/2020 DTaP VACCINE IM (6wk-6yrs) 07/18/2002 INFLUENZA VACCINE, QUADR. (F LUZONE; FLULAVAL; FLUARIX; AFLURIA QUADRIVALENT; 6MO+), 0.5 ML (IIV4) 07/19/2019 PNEUMOCOCCAL PPSV23 01/08/2017,12/19/2016 Family History Medical History Relation Name Comments Arthritis Mother Diabetes Mother Other Mother ANKLOSING SPEND YLITIS Thyroid Disease Mother Relation Name Status Comments Mother Social History Tobacco Use Types Packs/Day Years Used Date Smoking Tobacco: Never Smokeless Tobacco: Never Alcohol Use Standard Drinks/Week Comments Not Currently 0 (1 standard drink = 0.6 oz pur e alcohol) rare PHQ-2 Answer Date Recorded PHQ2 TOTAL SCORE 2 01/26/2022 Comments No Sex and Gender Information Value Date Recorded Sex Assigned at Not on file Legal Sex Female 9:31 AM CDT Gender Identity Not on file Sexual Orientation Not on file Last Filed Vital Signs Vital Sign Reading Time Taken Comments Blood Pressure 118/76 06/06/2023 12:37 PM TACTICAL RESPONSE GROUP OFFICER Pulse 66 06/06/2023 12:37 PM TACTICAL RESPONSE GROUP OFFICER Temperature 36.4 C (97.6 F) 06/06/2023 12:37 PM TACTICAL RESPONSE GROUP OFFICER Respiratory Rate 18 09/19/2017 3:17 PM TACTICAL RESPONSE GROUP OFFICER Oxygen Saturation 98% 12/28/2022 2:23 PM CDT Inhaled Oxygen Concentration - - Weight 86.8 kg (191 lb 6.4 oz) 06/06/2023 12:37 PM TACTICAL RESPONSE GROUP OFFICER Height 162.6 cm (5' 4) 06/06/2023 12:37 PM TACTICAL RESPONSE GROUP OFFICER Body Mass Index 32.85 06/06/2023 12:37 PM TACTICAL RESPONSE GROUP OFFICER Plan of Treatment Health Maintenance Due Date Last Done Comments COLOGUARD (AGES 45-75) - COLON CA SCREENING 1973 COLON MONITORING 1973 COLONOSCOPY - COLON CA SCREENING 1973 CT COLONOGRAPHY - COLON CA SCREENING 1975 Colorectal Cancer Screening 1973 FIT - COLON CA SCREENING 1973 FLEX SIG - COLON CA SCREENING 1975 MAMMOGRAM 1975 Opioid Medication Agreement - Annual 1973 HIV SCREENING 1988 HEPATITIS C SCREENING 07/12/1991 HEPATITIS B VACCINE (1 of 3 - 19+ 3-dose series) 1992 DTAP/TDAP/TD VACCINES (2 - Tdap) 07/18/2012 07/18/2002 PNEUMOCOCCAL VACCINE 50+ (2 of 2 - PCV) 2023 01/08/2017, 12/19/2016 ZOSTER VACCINE (1 of 2) 2023 DEPRESSION SCREENING 07/18/2024 01/26/2022 LIPID TESTING 07/18/2024 07/18/2019 COVID-19 VACCINE ( season) 2025 08/04/2021, 02/12/2021, 01/09/2021, Additional history exists INFLUENZA VACCINE (#1) 2025 07/19/2019 SCREENING FOR DIABETES 06/28/2025 2, 11/06/2021, 05/18/2016 HIB VACCINE Aged Out No longer eligi ble based on patient's age to complete this topic HPV VACCINE Aged Out No longer eligi ble based on patient's age to complete this topic MENINGOCOCCAL (Group B) VACCINE SHARED DECISION-MAKING Aged Out No longer eligible based on patient's age to complete this topic MENINGOCOCCAL GROUPS A/C/Y/W VACCINE Aged Out No longer eligible based on patient's age to complete this topic Medical Devices Implanted Type Area Padder Device Identifier Shelf Expiration Date Model / Serial / Lot Graft Tissue Sis Es Prcn Aclr Clgn Mtrx Implanted:Qty: 1 on 05/27/2016 by Darwin Cavazos MD at [facility] [employer] 08/31/2017 [id number] / / [id number] Procedures Procedure Name Priority Date/Time Associated Diagnosis Comments COMPREHENSIVE METABOLIC PANEL 06/28/2022 8:13 AM TACTICAL RESPONSE GROUP OFFICER from Last 3 Months or Most Recently Relevant to Health Maintenance Results * COMPREHENSIVE METABOLIC PANEL (06/28/2022 8:13 AM TACTICAL RESPONSE GROUP OFFICER) Glucose 85 65 - 99 mg/dL [facility] Comment: Fasting reference interval BUN 9 7 - 25 mg/dL [facility] Creatinine 0.69 0.50 - 0.99 mg/dL [facility] eGFR by Cystatin C 107 > OR = 60 mL/min/1. 73m2 [facility] Comment: The eGFR is based on the CKD-EPI 2020 equation. To calculate the new eGFR from a previous Creatinine or Cystatin C result, go to https://www.kidney.org/professionals/ kdoqi/gfr%5Fcalculator BUN/Creatinine Ratio NOT APPLICABLE 6 - (calc) [facility] Sodium 138 135 - 146 mmol/L [facility] Potassium 4.5 3.5 - 5.3 mmol/L [facility] Chloride 103 98 - 110 mmol/L [facility] CO2 30 20 - 32 mmol/L [facility] Calcium 9.2 8.6 - 10.2 mg/dL [facility] Protein Total 6.6 6.1 - 8.1 g/dL [facility] Albumin 3.8 3.6 - 5.1 g/dL [facility] Globulin Total 2.8 1.9 - 3.7 g/dL (calc) [facility] Albumin/Globuli n Ratio 1.4 1.0 - 2.5 (calc) [facility] Bilirubin Total 0.4 0.2 - 1.2 mg/dL [facility] Alkaline Phosphatase 57 31 - 125 U/L [facility] AST 10 10 - 35 U/L [facility] ALT 9 6 - 29 U/L [facility] Comment: Test Performed at: [facility] [address] [place] [address] LINDSEY MONTANA DO,MPH 06/28/2022 8:13 AM TACTICAL RESPONSE GROUP OFFICER 06/28/2022 8:14 AM TACTICAL RESPONSE GROUP OFFICER us Morales Alcazar MD LAB - CHEMISTRY ORDERABLES Final Result [facility] [id number] [place] [address] from Last 3 Months or Most Recently Relevant to Health Maintenance Insurance [employer] Advance Directives * Full Code (Latest Code Status on File) Date Activated Date Inactivated Comments 05/27/2016 12:35 PM 05/28/2016 3:28 PM Care Teams Fast Food Shift Supervisor Relationship Specialty Start Date End Date Mirlande Bedoya PA [address] [place] [address] PCP - General Physician Qa Engineer 01/26/16 Darwin Cavazos MD [facility] [address] [place] [address] Surgery 04/26/16
--- OUTSIDE RECORDS SUMMARY | 2025-03-30 12:40 | XMS_ITS | Clinical Summary ---
Author Organization [address] Address [address] [place] [address] Care Team Providers Care Non Emergency Services Ambulance Driver Name Role Phone Henrry Mirlande HOWARD Primary Care Pr ovider Allergies Active Allergy Reactions Criticality Noted Date Comments Adhesive Unknown 03/06/2024 Fd And C No.5 (Tartrazine) Unknown 3 Lidocaine Unknown 11/05/2021 Morphine Headache Medium 06/20/2014 Penicillins Hives,Other (See comments),Anaphylax is,Headache,Swellin g,Urticaria High 10/17/2012 Reaction: Unknown, , Reaction: throat itches, swells, Throat swelling Povidone-Iodine Itching,Rash,Swelli ng Medium 01/26/2022 Prochlorperazine Hives,Other (See comments),Rash,Urti caria Medium 10/17/2012 Reaction: unknown, , Reaction: unknown, , Reaction: Hives, rash, , Reaction: Hives, rash, Yellow Dye Itching,Palpitation s,Rash,Swelling Medium 07/18/2019 Medications EPINEPHrine (EPIPEN) 0.3 mg/0.3 mL injection syringe inject 0.3 milliliter by intramuscular route once as needed for anaphylaxis 0 0 4 Active biotin 1 mg capsule 1 mg. 0 0 4 Active diphenhydrAMIN E (BENADRYL) 25 mg capsule 25 mg. 0 0 4 Active cetirizine (ZyrTEC) 10 mg tablet TAKE ONE TABLET BY MOUTH ONCE DAILY 30 0 5 Active omeprazole (PriLOSEC) 40 mg capsule Take 1 capsule daily. 90 3 4 Active ipratropium-al buterol (DUONEB) 0.5-2.5 mg/3 mL nebulizer solution inhale 3 milliliter by nebulization route 4 times every day prn asthma exacerbation 180 ampule 2 4 Active ibuprofen (ADVIL,MOTRIN) 200 mg tablet take 1 tablet (200MG) by oral route every 6 hours as needed with food 0 2 Active PARoxetine (PAXIL) 20 mg tablet 1 7 Active fluticasone-sa lmeterol (ADVAIR DISKUS) 500-50 mcg/dose diskus inhalerIndicat ions:Bronchosp asm Prevention with COPD,Maintenan ce Therapy for Asthma Take 1 inhalation twice daily approximately 12 hours apart. Rinse and gargle after each use. 60 each 5 7 Active ergocalciferol (Vitamin D2) 50,000 unit capsule Take 1 capsule (50,000 Units total) by mouth 2 (two) times a week 30 capsule 3 9 Active benralizumab (Fasenra Pen) 30 mg/mL auto-injector Inject 1 mL (30 mg total) under the skin Every two months Active ammonium lactate (AMLACTIN) 12 % cream APPLY TWICE DAILY TO DRY SKIN AREAS NEEDED Active clonazePAM (KlonoPIN) 0.5 mg tablet Active cyclobenzaprin e (FLEXERIL) 10 mg tablet 1 tablet as needed Orally 1-2 times daily for 30 day(s) Active dicyclomine (BENTYL) 20 mg tablet Take 1 tablet (20 mg total) by mouth 3 (three) times a day Active fluocinonide 0.1 % cream APPLY TO THE AFFECTED AREA ON LEFT ARM TWICE DAILY WHEN FLARED FOR NO MORE THAN 3 WEEKS IN A ROW. Active fluticasone propionate (Flonase Allergy Relief) 50 mcg/actuation nasal spray Active folic acid (FOLVITE) 1 mg tablet 1 tablet (1 mg total) 3 Active nystatin powder Active clobetasoL (TEMOVATE) 0.05 % external solution 4 Active dextroamphetam ine-amphetamin e XR (ADDERALL XR) 30 mg 24 hr capsule 4 Active albuterol HFA (PROVENTIL HFA,VENTOLIN HFA,PROAIR HFA) 90 mcg/actuation inhaler 5 Active cholecalcifero l (VITAMIN D-3) 50,000 unit capsule Take 1 capsule (50,000 Units total) by mouth once a week 5 Active Caplyta 10.5 mg capsule 5 Active dextroamphetam ine-amphetamin e (ADDERALL) 10 mg tablet Take 1 tablet (10 mg total) by mouth daily for 30 days 5 Active spironolactone (ALDACTONE) 100 mg tabletIndicati ons:Hirsutism Take 1 tablet (100 mg total) by mouth 2 (two) times a day 60 tablet 11 5 Active semaglutide (WEGOVY) 1 mg/0.5 mL auto-injectorI ndications:Lane ght Loss Management for Obese Patient (BMI >= 30) Inject 1 mg under the skin every 7 days 6 mL 3 5 12/06/19 26 Active estrogens-meth ylTESTOSTERone (EEMT,COVARYX) 0.625-1.25 mg per tablet Take 1 tablet by mouth daily 5 Active Active Problems Problem Noted Date Diagnosed Date Ear pressure, left 12/25/2024 Left ear pain 12/25/2024 Tinnitus of both ears 12/25/2024 Overview (12/25/2024): recently increased to left ear Multiple thyroid nodules 10/19/2023 Assessment & Plan (12/05/2024 2:43 PM CDT): Chronic problem. Reviewed 10/2023 US that is unchanged. TFTs 09/2023 WNL. PCP has ordered soft neck tissue US. Has not yet scheduled. Assessment & Plan (03/06/2024 2:51 PM CDT): Chronic problem. Reviewed 10/2023 US that is unchanged. TFTs 09/2023 WNL. Right ear pain 10/12/2023 Assessment & Plan (10/12/2023 7:53 PM CDT): I do not find any evidence of an ear infection or inflammation. I talked with the patient about possible reasons for ear pain that could be coming from another source. There is some potential for TMJ disorder to cause this. Also some potential for ear pain due to cervical strain or shoulder problems. In her case I think it is probably due to either TMJ disorder or cervical strain which she suffers both. Could consider physical therapy or seeing her dentist. Otherwise I do not have a lot more to recommend. Dizziness and giddiness 10/12/2023 Assessment & Plan (10/12/2023 7:54 PM CDT): After reviewing her hearing test and her symptoms I do not think that an MRI scan or CT scan to evaluate for an acoustic tumor is necessary. Her hearing test actually shows pretty good hearing which usually is a reasonable indicator that this is not due to a tumor. She understands. She could undergo further evaluation of her dizziness through a [facility]. I also talked with her about seeing someone at the [facility] at [place]. She is going to consider that. Tonsil stone 10/12/2023 Assessment & Plan (10/12/2023 7:51 PM CDT): She reports having tonsil stones which can be bothersome. I talked with her about further management of this. There has really not a whole lot that can be done other than a tonsillectomy which I really do not recommend her age considering the difficult recovery. She seems to be managing this pretty well without surgical intervention. She is fine with that. I did tell her that tonsil stones sometimes can cause pain that will radiate up to the ear and jaw on the affected side. That could explain some of her symptoms. Chronic pansinusitis 10/12/2023 Assessment & Plan (10/12/2023 7:52 PM CDT): He does have some evidence of sinusitis involving the ethmoids on both sides. I am recommending further treatment with an antibiotic and a steroid and she would like to go ahead and pursue that. We will treat with a steroid pack and Ceftin for 2 weeks. Talked about follow-up and she indicated that she would follow up with me if her symptoms continue. May recommend imaging if that is the case. She has been evaluated for allergies in his done shots in the past. She would rather manage her allergies with medication. Vitamin D deficiency 06/05/2019 Assessment & Plan (06/05/2019 1:12 PM AUCTION ASSISTANT): Check 25 OH vit D Adjust dose of Ergocalciferol accordingly Asthma in adult 02/15/2017 Assessment & Plan (02/15/2017 12:55 PM CDT): Asthma is improving with treatment. The patient is experiencing no daytime asthma symptoms. She is experiencing no nighttime asthma symptoms. Warning signs of respiratory distress were reviewed with the patient. Class 1 obesity in adult 07/05/2016 Overview (10/22/2016): Adult BMI 29.0-29.9 kg/sq m Assessment & Plan (12/05/2024 2:43 PM CDT): Discussed healthy diet and importance of regular physical activity (20- 30min/day, 150min/wk). Will increase Wegovy from 0.5 mg to 1mg weekly. Assessment & Plan (03/06/2024 2:53 PM CDT): Discussed healthy diet and importance of regular physical activity (20- 30min/day, 150min/wk). Will attempt to get Zepbound covered. Sent in zepbound 2.5mg weekly. Assessment & Plan (10/19/2023 4:02 PM CDT): Diet and exercise Start Zepbound Assessment & Plan (10/16/2019 12:08 PM CDT): Diet and exercise were discussed Start Phentermine Assessment & Plan (02/06/2019 1:53 PM CDT): Diet and exercise were discussed Consider start weight loss medication Gastroesophageal reflux disease with esophagitis 12/02/2015 Overview (10/22/2016): Gastroesophageal reflux disease with esophagitis Abnormal breath sounds 12/02/2015 Overview (10/22/2016): Abnormal breath sounds Fibrositis 09/30/2015 Overview (10/22/2016): Fibromyalgia Hay fever 09/30/2015 Overview (10/22/2016): Allergic rhinitis due to pollen Psychophysiological insomnia 06/17/2015 Overview (10/22/2016): Psychophysiological insomnia Chronic allergic rhinitis 01/21/2015 Overview (10/22/2016): Allergic rhinitis Chronic wheezy bronchitis 08/27/2014 Overview (10/22/2016): Chronic asthmatic bronchitis Degeneration of intervertebral disc of lumbosacr al region 12/01/2013 Overview (10/22/2016): DDD (degenerative disc disease), lumbosacral Gastroesophageal reflux disease 12/01/2013 Overview (10/22/2016): GERD (gastroesophageal reflux disease) Polycystic ovaries 05/29/2013 Overview (10/22/2016): PCOS (polycystic ovarian syndrome) Assessment & Plan (12/05/2024 2:48 PM CDT): Chronic problem. Reviewed poor diet & sedentary lifestyle. Stressed need to improve lifestyle. Went over diet & activity recommendations. Currently having back pain. Had MRI Tuesday & waiting on results. Hoping for PT. Unable to exercise currently. Has stopped metformin d/t GI SE. Assessment & Plan (03/06/2024 2:53 PM CDT): Chronic problem. Reviewed poor diet & sedentary lifestyle. Stressed need to improve lifestyle. Went over diet & activity recommendations. Has stopped metformin d/t GI SE. Assessment & Plan (10/16/2019 12:08 PM CDT): Diet and exercise Continue Metformin Assessment & Plan (06/05/2019 1:11 PM AUCTION ASSISTANT): Diet and exercise Continue metformin Assessment & Plan (02/06/2019 1:52 PM CDT): Importance of diet and exercise to prevent progression to DM was describes. Will restart metformin 500 mg with dinner to increase to 1000 mg as tolerated Hirsutism 05/29/2013 Overview (10/22/2016): HIRSUTISM Assessment & Plan (12/05/2024 2:44 PM CDT): Chronic problem. Has not been taking spironolactone; will resume. Increased facial hair. Sent in spironolactone 100mg bid. Assessment & Plan (03/06/2024 2:52 PM CDT): Chronic problem. Has not been taking spironolactone; will resume. Increased facial hair. Assessment & Plan (10/16/2019 12:09 PM CDT): Patient would like to stay on Aldactone Assessment & Plan (06/05/2019 1:12 PM AUCTION ASSISTANT): Increase aldactone 100 mg bid Check T levels. Assessment & Plan (02/06/2019 1:52 PM CDT): Restart aldactone Nontoxic uninodular goiter 05/29/2013 Overview (10/22/2016): NONTOX UNINODULAR GOITER Assessment & Plan (02/06/2019 1:52 PM CDT): Thyroid ultrasound done today See report Since that has been no changes in 2012 there is no need for any follow-up now TSH has been reported as normal Impaired fasting glucose 07/06/2011 Overview (10/22/2016): IMPAIRED FASTING GLUCOSE Immunizations Immunization Administration Dates Next Due DTaP 07/18/2002 Influenza, Quadrivalent, Spl it, Preservative Free, Intramuscular 07/19/2019 Divergence (J&J) SARS-CoV-2 Vaccination 09/22/2020 Pneumococcal Polysaccharide PPV23 01/08/2017,10/2016 Surgical History Surgery Date Site/Laterality Comments TUBAL LIGATION Bilateral tubal ligation OTHER SURGICAL HISTORY neural foraminal narrowing: joint injection CHOLECYSTECTOMY 07/18/1999 - 07/17/2000 Cholecystectomy HERNIA REPAIR Hernia repair OTHER SURGICAL HISTORY sinus surgeries x3 OTHER SURGICAL HISTORY tubal ligation and ablation OTHER SURGICAL HISTORY hiatal hernia: noah fundiplication OTHER SURGICAL HISTORY Diaphragmatic hernia repair HYSTERECTOMY CATARACT EXTRACTION OVARY SURGERY Medical History Medical History Date Comments Hx Other Medical noah fundopli cation Hx Other Medical PCOS Gastroesophageal reflux disease GERD Endometritis 1992 endometriosis Hx Other Medical 2010 neural foramina l narrowing Asthma Asthma Hx Other Medical Not /claustroph obic; Comments: [facility] 02/12/2014 - Type 2 diabetes mellitus Diabete s type 2; Comments: [facility] 06/12/2014 - Hx Other Medical abnormal PAP; C omments: [facility] 06/12/2014 - Hx Other Medical bronchiectasis; Comments: [facility] 06/12/2014 - Hx Other Medical chronic back pa in; Comments: [facility] 06/12/2014 - Anxiety disorder Anxiety Chronic obstructive pulmonar y disease (HCC) COPD Depression Depression Hypertension Hypertension Hx Other Medical chronic sinusit is; Comments: [facility] 06/12/2014 - Hx Other Medical tremor; Comment s: [facility] 06/12/2014 - Hx Other Medical 2013 hysterectomy Hx Other Medical 2000 hiatal hernia Ear problems Family History Medical History Relation Name Comments Allergies Mother Allergies; Asthma Mother Asthma; Coronary artery disease Mother Maverick nary artery disease; Depression Mother Depression; Diabetes Mother Diabetes mellit us; Diabetes type II Mother Diabetes me llitus type 2; Hypertension Mother Hypertension; Diabetes type II Other Family hist ory of Diabetes -Type 2; Relation Name Status Comments Mother Other Social History Tobacco Use Types Packs/Day Years Used Date Smoking Tobacco: Never Smokeless Tobacco: Never Tobacco Cessation:Counseling Given: Not Answered Alcohol Use Standard Drinks/Week Comments Yes 0 (1 standard drink = 0.6 oz pur e alcohol) PHQ-2 Answer Date Recorded PHQ-2 Total Score (If total score is 3 or more points, staff should administer the PHQ-9) 0 10/16/2019 Comments Unknown Sex and Gender Information Value Date Recorded Sex Assigned at Not on file Legal Sex Female 9:05 PM AUCTION ASSISTANT Gender Identity Not on file Sexual Orientation Not on file Obstetrics History Last Filed Vital Signs Vital Sign Reading Time Taken Comments Blood Pressure 108/86 12/05/2024 1:56 PM CDT Pulse 95 12/05/2024 1:56 PM CDT Temperature 37.2 C (99 F) 02/15/2017 11:32 AM CDT Respiratory Rate 17 12/25/2024 1:37 PM CDT Oxygen Saturation 98% 02/15/2017 11:32 AM CDT Inhaled Oxygen Concentration - - Weight 78.5 kg (173 lb) 12/25/2024 1:37 PM CDT Height 162.6 cm (5' 4) 12/25/2024 1:37 PM CDT Body Mass Index 29.7 12/25/2024 1:37 PM CDT Plan of Treatment Health Maintenance Due Date Last Done Comments Breast Cancer Screening-Mammogram 1973 Colon Cancer Screening-Colonoscopy 1973 Hepatitis B Screening 1991 Regular Well Visit/Exam 18-64 1991 DTaP/Tdap/Td Vaccine (2 - Tdap) 07/18/2012 3 Pneumococcal vaccine <65 (2 of 2 - PCV) 01/08/2018 0 01/08/2017, 12/19/2016 Depression Screening 10/15/2020 10/16/2019, 02/07/20 19 Covid-19 Vaccine (2 - Mitali risk series) 10/20/2020 09/22/2020 Zoster Vaccine (1 of 2) 2023 Influenza Vaccine (#1) 2025 07/19/2019 Hepatitis C Screening Completed 11/27/2014 Procedures Procedure Name Priority Date/Time Associated Diagnosis Comments SERUM HEPATITIS PANEL Routine 11/27/2014 2:31 PM CDT from Last 3 Months or Most Recently Relevant to Health Maintenance Results * Serum Hepatitis panel (11/27/2014 2:31 PM CDT) HBV surface ag Negative NEG HISTO RICAL RESULTS HCV ab Negative NEG HISTORICAL RESULTS Comment: Interpretive Data If confirmation is required, call Laboratory Customer Service to request sample to be sent to [facility] for Hepatitis C Virus (HCV) RNA Detection and Quantitation by Real-Time Reverse Cut And Print Machine Operator-PCR (RT-PCR). Current interpretive data was last revised on 2011 HBV core ab, IgM Negative NEG HIS TORICAL RESULTS Comment: Interpretive Data If test is reported as Equivocal, new sample should be drawn for testing. Current interpretive data was last revised on 2008. HAV ab, IgM Negative NEG HISTORIC AL RESULTS Comment: Interpretive Data If test is reported as Equivocal, new sample should be drawn in two weeks for testing. Current interpretive data was last revised on 2008. Serum 11/27/2014 2:31 PM CDT us Jm Knight MD LAB BLOOD ORDERABLES Final Result HISTORICAL RESULTS from Last 3 Months or Most Recently Relevant to Health Maintenance Insurance [place] [employer] [facility] Care Teams Non Emergency Services Ambulance Driver Relationship Specialty Start Date End Date Mirlande Sales PA PCP - General 10/15/16
--- OUTSIDE RECORDS SUMMARY | 2025-03-30 12:40 | XMS_ITS | Clinical Summary ---
Author Organization [facility] Address [address] [place] [address] Care Team Providers Care Elevator Constructor Supervisor Name Role Phone Mirlande Sales Primary Care Provider [phone] Allergies Active Allergy Reactions Criticality Noted Date Comments Prochlorperazine Hives 07/18/2019 Lidocaine Unknown 11/23/2024 Morphine Headache 07/18/2019 Penicillins Throat swelling 07/18/2019 Povidone Iodine Itching,Rash,Swelling Medium 2 Tape Unknown 03/06/2024 Tartrazine Unknown 12/22/2022 Yellow Dye #6 ([place] Yellow) Rash Low 2019 Medications albuterol (2.5 MG/3ML) 0.083% nebulizer solution Take 2.5 mg by nebulization every 6 (six) hours as needed for Wheezing. Active spironolactone 100 MG tablet Take 1 tablet (100 mg total) by mouth daily. Active vitamin D2, ergocalciferol, 24506 UNITS capsule Take 1 capsule (50,000 Units total) by mouth every 7 days. Active ibuprofen 200 MG tablet Take 1 tablet (200 mg total) by mouth every 6 (six) hours as needed for Pain. Active cetirizine 10 MG tablet Take 1 tablet (10 mg total) by mouth daily. 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 360 mL 1 04/29/20 23 Active PARoxetine (PAXIL) 20 MG tablet Take 1 tablet (20 mg total) by mouth every morning. 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 1 each 5 05/22/20 24 Active amphetamine-dext roamphetamine XR (ADDERALL XR) 30 MG 24 hr capsule Take 1 capsule (30 mg total) by mouth every morning. Active WEGOVY 0.5 mg/dose injection (PEN) Inject 0.5 mg into the skin once a week. 09/16/19 25 Active montelukast (SINGULAIR) 10 MG tablet Take 1 tablet (10 mg total) by mouth nightly at bedtime. Active fluticasone propionate (FLONASE) 50 MCG/ACT nasal spray 1 spray by Each Nostril route daily. Active CAPLYTA 10.5 MG Cap 11/20/19 25 Active vitamin D3 (CHOLECALCIFEROL ) 1.25 mg capsule Take 1 capsule (1.25 mg total) by mouth once a week. 10/07/19 25 Active albuterol sulfate HFA 108 (90 Base) MCG/ACT inhalerIndicatio ns:Moderate persistent asthma without complication (HHS/HCC) Inhale 2 puffs into the lungs every 6 (six) hours as needed for Wheezing. 18 g 6 03/29/20 25 Active fluticasone-salm eterol (ADVAIR DISKUS) 500-50 MCG/ACT inhalerIndicatio ns:Moderate persistent asthma without complication (HHS/HCC) Inhale 1 puff into the lungs 2 (two) times daily. 180 each 3 03/29/20 25 Active albuterol sulfate HFA 108 (90 Base) MCG/ACT inhalerIndicatio ns:Moderate persistent asthma without complication (HHS/HCC) Inhale 2 puffs into the lungs every 6 (six) hours as needed for Wheezing. 18 g 6 04/25/20 24 025 Discontin ued(Reord er) fluticasone-salm eterol (ADVAIR DISKUS) 500-50 MCG/ACT inhalerIndicatio ns:Moderate persistent asthma without complication ([facility]) Inhale 1 puff into the lungs 2 (two) times daily. 180 each 3 05/14/20 24 025 Discontin ued(Reord er) Active Problems Problem Noted Date Diagnosed Date Abscess of axilla 11/23/2024 Disorder of nose 11/23/2024 Hearing difficulty 11/23/2024 Irritable bowel syndrome 11/23/2024 Major depressive disorder 11/23/2024 Osteoarthritis of spinal facet joint 11/23/2024 Spasm 11/23/2024 Spondylosis 11/23/2024 Multiple thyroid nodules 10/19/2023 Right ear pain 10/12/2023 Tonsil stone 10/12/2023 COVID-19 04/25/2023 Chronic daily headache 04/13/2023 Dizziness and giddiness 04/13/2023 Tinnitus 04/13/2023 Costochondral chest pain 07/18/2022 Overview (11/23/2024): I have been having this intermittently all year. Palpitations 06/20/2022 Skin eruption 06/20/2022 Seborrheic dermatitis of scalp 06/20/2022 Acute sinusitis 09/13/2021 Chest pain 07/18/2019 Asthma in adult (HHS/HCC) 02/15/2017 Class 1 obesity in adult 07/05/2016 Overview (11/23/2024): Adult BMI 29.0-29.9 kg/sq m Abnormal breath sounds 12/02/2015 Overview (11/23/2024): Abnormal breath sounds Gastroesophageal reflux disease with esophagitis 12/02/2015 Overview (11/23/2024): Gastroesophageal reflux disease with esophagitis Fibrositis 09/30/2015 Overview (11/23/2024): Fibromyalgia Hay fever 09/30/2015 Overview (11/23/2024): Allergic rhinitis due to pollen Psychophysiological insomnia 06/17/2015 Overview (11/23/2024): Psychophysiological insomnia Anxiety 04/28/2015 Arthritis 04/28/2015 Chronic pain 04/28/2015 Fatigue 04/28/2015 Moderate persistent asthma ([facility]) 04/28/2015 Thyroid nodule 04/28/2015 Vitamin D deficiency 04/28/2015 Allergic rhinitis 01/21/2015 Overview (11/23/2024): Allergic rhinitis Chronic wheezy bronchitis ([facility]) 08/18 Overview (11/23/2024): Chronic asthmatic bronchitis Degeneration of intervertebral disc of lumbosacr al region 12/01/2013 Overview (11/23/2024): DDD (degenerative disc disease), lumbosacral Gastroesophageal reflux disease 12/01/2013 Overview (11/23/2024): GERD (gastroesophageal reflux disease) Hirsutism 05/29/2013 Overview (11/23/2024): HIRSUTISM Nontoxic uninodular goiter 05/29/2013 Overview (11/23/2024): NONTOX UNINODULAR GOITER Polycystic ovaries 05/29/2013 Overview (11/23/2024): PCOS (polycystic ovarian syndrome) Impaired fasting glucose 07/06/2011 Overview (11/23/2024): IMPAIRED FASTING GLUCOSE Resolved Problems Problem Noted Date Diagnosed Date Resolved Date Encounter for preventive health examination 04/15/2015 11/26/2024 Encounters Date Type Department Care Team Description 03/28/2025 MyChart Message Enc [facility] Medical Group Multispecialty Care - [address] [place] [address] Rehan Bhatt MD Updating pharmacy and getting refills 03/21/2025 Results [facility] [address] [facility] [place] [address] Rehan Bhatt MD Complete PFT (pre/post [place], Lung Vol, Diff Capacity) (47916, 65296, 22951, 59117) 03/15/2025 MyChart Message Enc [facility] Emergency Department - [facility] [address] [facility] [place] [address] Rehan Bhatt MD Medical note 03/11/2025 1:00 PM CDT - 03/11/2025 11:59 PM CDT Hospital Encounter [facility] [place] [address] Rehan Bhatt MD Discharge Disposition: Home or Self Care (Routine Discharge) 03/11/2025 Scan [facility] INFO SRVCS Scanned, Doc [facility] PFT (SCAN) 03/11/2025 Travel from Last 3 Months Immunizations Immunization Administration Dates Next Due Afluria 36 MONTHS+ (Prefilled Syringe IIV4) 08/2019 Dtap 07/18/2002 ROXANNA (HIRA & HIRA) COVID-19 AD26 VACCINE 0.5 ML IM SUSP 09/22/2020 Pneumococcal (Pneumovax 23) 01/08/2017, 7 Family History Medical History Relation Comments Allergies Mother CVA Mother Diabetes Mother HTN Mother Thyroid Mother Relation Status Comments Mother Social History Tobacco Use Types Packs/Day Years Used Date Smoking Tobacco: Never Smokeless Tobacco: Never Tobacco Cessation:Counseling Given: Yes Alcohol Use Standard Drinks/Week Comments Yes 0 (1 standard drink = 0.6 oz pur e alcohol) 2 x/year PHQ-2 Answer Date Recorded Patient Health Questionnaire-2 Score 0 05/14/2024 Comments No Sex and Gender Information Value Date Recorded Sex Assigned at Female 03/11/2025 12:53 PM CDT Legal Sex Female 6:29 PM CDT Gender Identity Not on file Sexual Orientation Not on file Last Filed Vital Signs Vital Sign Reading Time Taken Comments Blood Pressure 149/94 11/23/2024 3:05 PM CDT Pulse 88 11/23/2024 3:05 PM CDT Temperature 36.7 C (98 F) 05/14/2024 8:20 AM CDT Respiratory Rate 16 11/23/2024 3:05 PM CDT Oxygen Saturation 99% 11/23/2024 3:05 PM CDT Inhaled Oxygen Concentration - - Weight 81.6 kg (180 lb) 11/23/2024 3:05 PM CDT Height 162.6 cm (5' 4) 11/23/2024 3:05 PM CDT Body Mass Index 30.9 11/23/2024 3:05 PM CDT Plan of Treatment Upcoming Encounters Date Type Department Care Team (Late st Contact Info) Description 05/27/2025 11:20 AM MODEL MAKER PLASTER Office Visit [facility] Medical Group Multispecialty Care - [facility] [address] [facility] [place] [address] Rehan Bhatt MD [address] [facility] [address] [place] [address] Health Maintenance Due Date Last Done Comments Colorectal Cancer Screening Colonoscopy (10 Years) 1973 Annual Physical 1976 Hepatitis C 1991 Hepatitis B Vaccines (1 of 3 - 19+ 3-dose series) 1992 DTaP, Tdap and Td Vaccines (2 - Tdap) 07/18/2012 07/18/2002 Mammogram Screening 2013 Pneumococcal Vaccine: 50+ Years (2 of 2 - PCV) 01/08/2018 01/08/2017, 12/19/2016 Zoster Vaccines (1 of 2) 2023 PHQ-2 (Physician [place]) 07/18/2024 05/14/2024 COVID-19 Vaccine ( season) 2025 08/04/2021, 02/12/2021, 01/09/2021, Additional history exists Meningococcal B Vaccine Aged Out No l onger eligible based on patient's age to complete this topic Meningococcal Vaccine Aged Out No hector caro eligible based on patient's age to complete this topic RSV Immunizations Under 20 Months Aged Out No longer eligible based on patient's age to complete this topic Procedures Procedure Name Priority Date/Time Associated Diagnosis Comments PULMONARY FUNCTION TEST Routine 03/11/2025 1:00 PM CDT Severe persistent steroid-dependent asthma without complication ([facility]) SIX MINUTE WALK Routine 03/11/2025 1:00 PM CDT Severe persistent steroid-dependent asthma without complication ([facility]) PFT GENERIC (SCAN ORDER) 03/11/2025 from Last 3 Months Results * Six Minute Walk (32562) (03/11/2025 1:00 PM CDT) Narrative [facility] - 03/11/2025 1:00 PM CDT Rehan Bhatt MD 03/21/2025 9:17 AM [facility] PULMONARY FUNCTION TESTS Sayda Campuzano 49-year-old Height 64 inches Weight 167 Lbs 03/21/2025 INTERPRETATION Please see technologist's comments. SPIROMETRY: Prebronchodilator FEV1 2.50 L, 92% predicted. FVC 3.72 L, 109% predicted. FEV1/FVC ratio 67% Postbronchodilator FEV1 2.77 L, 102% predicted. FVC 3.80 L, 111% predicted. FEV1/FVC ratio 73% There is No significant response to bronchodilator administration. Inspection of the patient's flow-volume loops shows normal configuration of the inspiratory and expiratory limbs LUNG VOLUMES: TLC 5.40 L, 104% predicted. RV 1.68 L, 109% predicted. DLCO: Diffusing capacity unadjusted for Hb and COHb is 114% 6-minute walk test: At rest on room air oxygen saturation was 99%. She walked 400 feet. Lowest oxygen saturation was 97% IMPRESSION: Mild reversible obstructive ventilatory limitation Normal lung volumes Normal DLCO Technically no significant response to bronchodilator by strict criteria; please note FEV1 improved by 270 mL and FEF 25-75% improved by 590 mL. These findings can be consistent with asthma. Rehan Bhatt MD Rehan Bhatt MD PFT ORDERABLES Final Result Performing Organization Address City/[facility]/ZIP Co de Phone Number [facility] [address] [place] [address], [place] [phone] * Complete PFT (pre/post [place], Lung Vol, Diff Capacity) (98089, 39821, 93472, 22040) (03/11/2025 1:00 PM CDT) Narrative [facility] - 03/11/2025 1:00 PM CDT Rehan Bhatt MD 03/21/2025 9:17 AM [facility] PULMONARY FUNCTION TESTS Sayda Campuzano 49-year-old Height 64 inches Weight 167 Lbs 03/21/2025 INTERPRETATION Please see technologist's comments. SPIROMETRY: Prebronchodilator FEV1 2.50 L, 92% predicted. FVC 3.72 L, 109% predicted. FEV1/FVC ratio 67% Postbronchodilator FEV1 2.77 L, 102% predicted. FVC 3.80 L, 111% predicted. FEV1/FVC ratio 73% There is No significant response to bronchodilator administration. Inspection of the patient's flow-volume loops shows normal configuration of the inspiratory and expiratory limbs LUNG VOLUMES: TLC 5.40 L, 104% predicted. RV 1.68 L, 109% predicted. DLCO: Diffusing capacity unadjusted for Hb and COHb is 114% 6-minute walk test: At rest on room air oxygen saturation was 99%. She walked 400 feet. Lowest oxygen saturation was 97% IMPRESSION: Mild reversible obstructive ventilatory limitation Normal lung volumes Normal DLCO Technically no significant response to bronchodilator by strict criteria; please note FEV1 improved by 270 mL and FEF 25-75% improved by 590 mL. These findings can be consistent with asthma. Rehan Bhatt MD Rehan Bhtat MD PFT ORDERABLES Final Result Performing Organization Address City/[facility]/ZIP Co de Phone Number [facility] [address] [place] [address], [place] [phone] * PFT GENERIC (SCAN ORDER) (03/11/2025) 03/11/2025 us Doc Med Group Scanned SCANNING Final Resu lt from Last 3 Months Insurance [facility] Advance Directives * Full Code (Latest Code Status on File) Date Activated Date Inactivated Comments 07/18/2019 1:44 PM 07/19/2019 3:14 PM Care Teams Elevator Constructor Supervisor Relationship Specialty Start Date End Date Mirlande Sales PA PCP - General PHYSICIAN CONTRACTS MANAGER 07/18/19
--- OUTSIDE RECORDS SUMMARY | 2025-03-30 12:40 | XMS_ITS | Patient Health Record ---
Author Organization [facility] Address [address] [place] [address] Care Team Providers Care Taxi Cab Driver Name Role Phone Ana Koenig Unavailable [phone] Reason For Referral No Information Medications Medication SIG (Take, Route, Frequency, Duration) Notes Start Date End Date Status Chlorhexidine Gluconate 0.12% Solution Mouth/Throat 09/10/2020 Active Montelukast Sodium 10 MG Tablet Oral 09/10/2020 Active Cholecalciferol 1.25 MG (67312 UT) Capsule Oral 09/10/2020 Active PARoxetine HCl 40 MG Tablet Oral 09/10/2020 Active valACYclovir HCl 500 MG Tablet Oral 09/10/2020 Active PARoxetine HCl 30 MG Tablet Oral 09/10/2020 Active Azithromycin 500 MG Tablet Oral 09/10/2020 Active PARoxetine HCl 20 MG Tablet Oral 09/10/2020 Active FLUTICASONE 500 MCG-SALMETEROL 50 MCG/DOSE BLISTR POWDR FOR INHALATION *Reorder from [facility] for eRx and Interaction Alerts* 09/10/2020 Active predniSONE 20 MG Tablet Oral 09/10/2020 Active metFORMIN HCl ER 500 MG Tablet Extended Release 24 Hour Oral 09/10/2020 Active Albuterol Sulfate (2.5 MG/3ML) 0.083% Nebulization Solution Inhalation 09/10/2020 Active Metaxalone 800 MG Tablet Oral 09/10/2020 Active Cyclobenzaprine HCl 10 MG Tablet Oral 09/10/2020 Active Cefdinir 300 MG Capsule Oral 09/10/2020 Active Terconazole 0.8 % Cream Vaginal 09/10/2020 Active Fluconazole 150 MG Tablet Oral 09/10/2020 Active Clotrimazole-Betamethas one 1-0.05 % Cream External 09/10/2020 Active Amphetamine-Dextroamphe t ER 30 MG Capsule Extended Release 24 Hour Oral 09/10/2020 Active Phentermine HCl 15 MG Capsule Oral 09/10/2020 Active predniSONE 5 MG Tablet Oral 09/10/2020 Active Nucynta 50 MG Tablet Oral 09/10/2020 Active Ammonium Lactate 12 % Cream External 09/10/2020 Active EPINEPHrine 0.3 MG/0.3ML Solution Auto-injector Injection 09/10/2020 Active ProAir HFA 108 (90 Base) MCG/ACT Aerosol Solution Inhalation 09/10/2020 Active traZODone HCl 50 MG Tablet Oral 09/10/2020 Active Spironolactone 100 MG Tablet Oral 09/10/2020 Active Azithromycin 250 MG Tablet Oral 09/10/2020 Active Immunizations Vaccine Route Administration Date Status Comme nts DTaP Unknown 07/18/2002 Administered Novel [id number], preservative free Unknown 07/19/2019 Administered Pneumococcal polysaccharide PPV23 Unknown 12/19/2016 Ad ministered Pneumococcal polysaccharide PPV23 Unknown 01/08/2017 Ad ministered Social History Social History Additional Details Category Social Info Options Details Migrated Social History Migrated Social History Tobacco Years: Former smoker 09/10/2020 Plan Of Treatment No Information Insurance Providers Payer Name Payer Address Payer Phone Subscriber Number Group Number Insured Name Patient Relationship to Insured Coverage Start Date Coverage End Date [place] [employer] [address] [place] [phone] [id number] LUCIAN STAFFORD Self - patient is the insured Medical (General) History Surgical History Surgery Date(Month/Year) Hysterectomy/revise vagina (06866) Endometr ablate thermal (38716) Cholecystectomy ([id number])
--- OUTSIDE RECORDS SUMMARY | 2025-03-30 12:40 | XMS_ITS | Encounter Summary ---
Author Organization [facility] Address [address] [place] [address] Care Team Providers Care Environmental Protection Specialist Name Role Phone Mirlande Sales Primary Care Provider [phone] Encounter Details Date Type Department Care Team (Latest Contact Info) Description 03/21/2025 Results Follow-Up [facility] Medical Group Multispecialty Care - [facility] [address] [facility] [place] [address] Rehan Bhatt MD [address] [facility] [address] [place] [address] Complete PFT (pre/post [place], Lung Vol, Diff Capacity) (98850, 49567, 81546, 68788) Social History Tobacco Use Types Packs/Day Years Used Date Smoking Tobacco: Never Smokeless Tobacco: Never Alcohol Use Standard Drinks/Week Comments Yes 0 (1 standard drink = 0.6 oz pur e alcohol) 2 x/year PHQ-2 Answer Date Recorded Patient Health Questionnaire-2 Score 0 05/14/2024 Comments No Sex and Gender Information Value Date Recorded Sex Assigned at Female 03/11/2025 12:53 PM CDT Legal Sex Female 6:29 PM CDT Gender Identity Not on file Sexual Orientation Not on file documented as of this encounter Functional Status * RETIRED Are you deaf or do you have serious difficulty hearing Answer Date of Assessment Author Status No 07/19/2019 12:32 PM NURSES AIDE Acti ve * RETIRED Are you blind or do you have serious difficulty seeing, even when wearing glasses? Answer Date of Assessment Author Status No 07/19/2019 12:32 PM NURSES AIDE Acti ve * Do you have serious difficulty walking or climbing stairs? Answer Date of Assessment Author Status No 07/19/2019 12:32 PM Tati Kimbrough RN Active * Do you have difficulty dressing or bathing? Answer Date of Assessment Author Status No 07/19/2019 12:32 PM Tati Kimbrough RN Active * Because of a physical, mental, or emotional condition, do you have difficulty doing errands alone such as visiting a doctor's office or shopping? Answer Date of Assessment Author Status No 07/19/2019 12:32 PM Tati Kimbrough RN Active documented as of this encounter Mental Status * Because of a physical, mental, or emotional condition, do you have serious difficulty concentrating, remembering, or making decisions? Answer Entry Date Author Status No 07/19/2019 12:32 PM Tati Kimbrough RN Active documented in this encounter Progress Notes * Rehan Bhatt MD - 03/21/2025 9:18 AM CDT Mrs. Campuzano, I reviewed your lung function testing. Compared to 2022 there has been improvement in airflow. Findings are still consistent with asthma. No changes needed to your therapy. We will go over these results in more detail when you follow-up. Rehan Bhatt MD documented in this encounter Plan of Treatment Upcoming Encounters Date Type Department Care Team (Late st Contact Info) Description 05/27/2025 11:20 AM NURSES AIDE Office Visit [facility] Medical Group Multispecialty Care - [facility] [address] [facility] [place] [id number] Rehan Bhatt MD [address] [place] [address] documented as of this encounter Visit Diagnoses Not on filedocumented in this encounter Additional Health Concerns Assessment Noted Time PHQ-9 Depression Total Score: 0 01/01/20 21 9:09 AM CDT documented as of this encounter Care Teams Environmental Protection Specialist Relationship Specialty Start Date End Date Mirlande Sales PA PCP - General PHYSICIAN DEVELOPMENT PLANNER 07/18/19 documented as of this encounter
--- OUTSIDE RECORDS SUMMARY | 2025-03-30 12:40 | XMS_ITS | Encounter Summary ---
Author Organization [facility] Address [address] [place] [address] Care Team Providers Care Varnish Melter Helper Name Role Phone Mirlande Sales Primary Care Provider [phone] Encounter Details Date Type Department Care Team (Latest Contact Info) Description 03/28/2025 Tourjivet Message Enc [facility] Medical Group Multispecialty Care - [facility] [address] [facility] [place] [address] Rehan Bhatt MD [address] [facility] [address] [place] [address] Updating pharmacy and getting refills Social History Tobacco Use Types Packs/Day Years [...] Assessment Author Status No 07/19/2019 12:32 PM DEWER Acti ve * RETIRED Are you blind or do you have serious difficulty seeing, even when wearing glasses? Answer Date of Assessment Author Status No 07/19/2019 12:32 PM DEWER Acti ve * Do you have serious difficulty walking or climbing stairs? Answer Date of Assessment Author Status No 07/19/2019 12:32 PM DEWER Tati Muhammad RN Active * Do you have difficulty dressing or bathing? Answer Date of Assessment Author Status No 07/19/2019 12:32 PM DEWER Tati Muhammad RN Active * Because of a physical, [...] Kimbrough RN Active documented in this encounter Plan of Treatment Upcoming Encounters Date Type Department Care Team (Late st Contact Info) Description 05/27/2025 11:20 AM DEWER Office Visit [facility] Medical Group Multispecialty Care - [facility] [address] [facility] [place] [address] Rehan Bhatt MD [address] [facility] [address] [place] [address] documented as of this encounter Visit Diagnoses Diagnosis Moderate persistent asthma without complication (HHS/HCC) Unspecified asthma documented in this encounter Additional Health Concerns Assessment Noted Time PHQ-9 Depression Total Score: 0 01/01/20 21 9:09 AM CDT documented as of this encounter Care Teams Varnish Melter Helper Relationship Specialty Start Date End Date Mirlande Sales PA PCP - General PHYSICIAN ENGINEER EXHAUSTER 07/18/19 documented as of this encounter
--- OUTSIDE RECORDS SUMMARY | 2025-03-30 12:41 | XMS_ITS | Patient Health Record ---
Author Organization [facility] Address [id number] [place] [address] Care Team Providers Care Skimmer Name Role Phone NICMona SAUMYA Primary Care Provider Unavailab BRANDIE Marie Unavailable [phone] Laura Frye MD Unavailable Unavailable Allergies Allergen (clinical drug ingredient) Drug/Non Drug Allergy documented on EMR Reaction Allergy Type Onset Date Status Penicillin (uncoded) Unknown Allergy Active povidone-iodine Betadine Unknown Drug Allergy A ctive morphine Morphine Sulfate Unknown Drug Allergy Active Tartrazine (FD&C Yellow #5) Unknown Drug Allergy Active Compazine Unknown Drug Allergy Active Reason For Referral No Information Medications Medication SIG (Take, Route, Frequency, Duration) Notes Start Date End Date Status Sudafed 30 MG 2 tablets as needed Orally every 6 hrs Active Vitamin D 50,000u Ac tive Ibuprofen 200 MG 1 tablet with food o r milk as needed Orally Three times a day Active Paxil 20 MG 1 tablet in the morn ing Orally BID Active Voltaren 1 % as directed Externally Active Advair Diskus 500-50 MCG/DOSE 1 puff Inhalation Twice a day Active Ventolin HFA Active clonazePAM 0.5 MG 1 tablet at bedtime Orally Once a day Active Estradiol 1 MG 1 tablet Orally Once a day; Duration: 30 day(s) Active Lidoderm 5 % 1 patch remove after 12 hours Externally Once a day; Duration: 30 days 03/11/2025 Active Folic Acid 1 MG 1 tablet Orally Once a day; Duration: 30 day(s) Active Spironolactone 100 MG 1 tablet Orally On ce a day Active Valium 5 MG 1 tablet Orally TAKE 45 MINUTES PRIOR TO PROCEDURE; Duration: 1 days 02/22/2025 Active Wegovy 1 MG/0.5ML 0.5 mL Subcutaneous Active Cyclobenzaprine HCl 10 MG 1 tablet as ne eded Orally 1-2 times daily; Duration: 30 day(s) Active Fasenra 30 MG/ML 1 null Subcutaneous Active Adderall XR 30 MG 1 capsule in the mor enma Orally Once a day Active ZyrTEC 10 MG 1 tablet Orally Once a day Active Omeprazole Active Problems Problem Type SNOMED Code ICD Code Onset Dates Problem Status W/U Status Risk Notes Problem Localized, primary osteoarthritis of the hand (830863714) Unilateral primary osteoarthritis of first carpometacarpal joint, right hand (M18.11) Active confirmed Problem Localized, primary osteoarthritis of the hand (602500666) Unilateral primary osteoarthritis of first carpometacarpal joint, left hand (M18.12) Active confirmed Problem Trochanteric bursitis of right hip (869875656200928) Trochanteric bursitis, right hip (M70.61) Active confirmed Problem Pain in right arm (562933839) Pain in right arm (M79.601) Active confirmed Problem Fibromyalgia (258635777) Fibromyalgia (M79.7) Active confirmed Problem Sacroiliitis (47878012) Sacroiliitis (M46.1) Active confirmed Problem Trochanteric bursitis of left hip (084331339145631) Trochanteric bursitis of left hip (M70.62) Active confirmed Problem Lumbar radiculopathy (821559107) Lumbar radiculopathy (M54.16) Active confirmed Problem Cervical spondylosis without myelopathy (255322462) Spondylosis of cervical region without myelopathy or radiculopathy (M47.812) Active confirmed Problem Pain in limb (77977609) Pain of left arm (M79.602) Active confirmed Problem Localized, primary osteoarthritis of the shoulder region (221647606) 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) Active confirmed Problem Lumbar spondylosis (468568866) Lumbar spondylosis (M47.816) Active confirmed Problem Spinal enthesopathy of cervical region (409906258613120) Spinal enthesopathy of cervical region (M46.02) Active confirmed Problem Cervical myofascial pain syndrome (148894492) Cervical myofascial pain syndrome (M79.18) Active confirmed Problem Myofascial pain syndrome of thoracic spine (97861731051200) Myofascial pain syndrome of thoracic spine (M79.18) Active confirmed Vital Signs Heart Rate 77 /min 03/20/2025 Temperature 98.6 degrees Fahrenheit 03/20/2025 Blood pressure diastolic 70 mm Hg 03/20/2025 Height 64 in 03/20/2025 Blood pressure systolic 103 mm Hg 03/20/2025 Weight 168 lbs 03/20/2025 BMI 28.83 kg/m2 03/20/2025 Encounters Encounter Location Date Provider Diagnosis [facility] [address] [address] 04/24/2024 BRANDIE AHMAD Sacroiliitis M46.1 [facility] [address] [address] 06/27/2024 BRANDIE AHMAD Sacroiliitis M46.1 a nd Lumbar spondylosis M47.816 [facility] [address] [address] 08/07/2024 BRANDIE AHMAD Sacroiliitis M46.1 [facility] [address] [address] 11/19/2024 BRANDIE AHMAD Lumbar radiculopathy M54.16 ; Trochanteric bursitis, right hip M70.61 and Sacroiliitis M46.1 [facility] [address] [address] 01/02/2025 BRANDIE AHMAD Lumbar spondylosis M47.816 ; Lumbar radiculopathy M54.16 ; Trochanteric bursitis, right hip M70.61 and Sacroiliitis M46.1 [facility] [address] [address] 01/22/2025 BRANDIE AHMAD Lumbar spondylosis M47.816 [facility] [address] [address] 02/21/2025 BRANDIE AHMAD Lumbar spondylosis M47.816 [facility] [address] [address] 02/28/2025 BRANDIE AHDEVONTE Lumbar spondylosis M47.816 [facility] [address] [address] 03/20/2025 BRANDIE AHDEVONTE Trochanteric bursiti s, right hip M70.61 ; Trochanteric bursitis of left hip M70.62 ; Sacroiliitis M46.1 and Lumbar spondylosis M47.816 [facility] [address] [address] 02/21/2025 BRANDIE AHDEVONTE [facility] [address] [address] 03/11/2025 BRANDIE GIOVANNADEVONTE Assessments Encounter Date Diagnosis (ICD Code) Assessment Notes Treatment Notes Treatment Clinical Notes Section Notes 04/24/2024 Sacroiliitis (ICD-10 - M46.1) The patient presents in office for continued low back pain. On exam, she has pain to the sacroiliac joints as well as the ITB bilaterally. The patient has clinical evidence of sacroiliitis with pain located between the upper level of the iliac crests and the gluteal fold at the sacroiliac joints. The patients pain was reproducible with provocative testing including the thigh thrust, Gaenslens test, sacroiliac joint compression and SACHIN testing. The patient has tenderness to palpation over the sacroiliac joints. The patient does not have any neurological changes on exam and has no evidence of radicular symptoms. The patients pain has consistently been 5/10 and has not responded to >6 weeks of conservative treatment including chiropractic, physical therapy or prescribed home exercise program. The patient has failed NSAID's >3 weeks and has modified their activity >6 weeks without relief of symptoms. The clinical findings do not indicate any other possible diagnosis. The patient had the bilateral sacroiliac joint injection procedure in the office today. The patient tolerated the procedure well. Postprocedure instructions were discussed. If there are any medication or procedure related problems, the patient will contact us. At the time of discharge the patient was medically stable. 06/27/2024 Sacroiliitis (ICD-10 - M46.1) The patient presents in office for continued low back pain. On exam, she has pain to the sacroiliac joints as well as the ITB bilaterally. The patient has clinical evidence of sacroiliitis with pain located between the upper level of the iliac crests and the gluteal fold at the sacroiliac joints. The patients pain was reproducible with provocative testing including the thigh thrust, Gaenslens test, sacroiliac joint compression and SACHIN testing. The patient has tenderness to palpation over the sacroiliac joints. The patient does not have any neurological changes on exam and has no evidence of radicular symptoms. The patients pain has consistently been 5/10 and has not responded to >6 weeks of conservative treatment including chiropractic, physical therapy or prescribed home exercise program. The patient has failed NSAID's >3 weeks and has modified their activity >6 weeks without relief of symptoms. The sacroiliac joints, right more then left joint pain is flaring up again. The previous therapeutic sacroiliac joint injection provided >80% relief of pain for atleast 3 months and improvement of ADL's. That also confirms the diagnosis of sacroiliitis. The patient is interested in repeating the procedure. All the pros and cons of the procedure were discussed with the patient. The risk of infection, bleeding, and pain were discussed with the patient. All questions were answered. The patient wants to proceed with the procedure. The procedure will be completed under fluoroscopy in the office with no sedation We will recommend physical therapy for the patient, to improve the biomechanics, and to start a home exercise program for stretching and strengthening. The prescription for physical therapy was given to the patient. The patient was also recommended to avoid any activities that aggravate the symptoms, and to only do exercises as tolerated. 08/07/2024 Sacroiliitis (ICD-10 - M46.1) The patient presents in office for continued low back pain. On exam, she has pain to the sacroiliac joints as well as the ITB bilaterally. The patient has clinical evidence of sacroiliitis with pain located between the upper level of the iliac crests and the gluteal fold at the sacroiliac joints. The patients pain was reproducible with provocative testing including the thigh thrust, Gaenslens test, sacroiliac joint compression and SACHIN testing. The patient has tenderness to palpation over the sacroiliac joints. The patient does not have any neurological changes on exam and has no evidence of radicular symptoms. The patients pain has consistently been 5/10 and has not responded to >6 weeks of conservative treatment including chiropractic, physical therapy or prescribed home exercise program. The patient has failed NSAID's >3 weeks and has modified their activity >6 weeks without relief of symptoms. The sacroiliac joints, right more then left joint pain is flaring up again. The previous therapeutic sacroiliac joint injection provided >80% relief of pain for atleast 3 months and improvement of ADL's. We will recommend physical therapy for the patient, to improve the biomechanics, and to start a home exercise program for stretching and strengthening. The prescription for physical therapy was given to the patient. The patient was also recommended to avoid any activities that aggravate the symptoms, and to only do exercises as tolerated. The patient had the bilateral sacroiliac joint injection procedure in the office today. The patient tolerated the procedure well. Postprocedure instructions were discussed. If there are any medication or procedure related problems, the patient will contact us. At the time of discharge the patient was medically stable. 11/19/2024 Trochanteric bursitis, right hip (ICD-10 - M70.61) She is having pain to her right lateral hip, not allowing her to lay on her side. The patient presents with lateral pain of the RIGHT hip. On clinical exam the patient has tenderness over the right greater trochanteric bursa and gluteus medius. She also has pain when lying on the RIGHT side. Due to the patient's symptoms we will schedule the patient for a RIGHT trochanteric bursa injection., All pros and cons of the procedure were discussed with the patient and all questions were answered 11/19/2024 Lumbar radiculopathy (ICD-10 - M54.16) She reports that with walking, standing and sitting increases pain. She reports that pain is present and radiates to her right lateral lower extremity extending to her foot. She is also with numbness to her right foot. She states that she has a buckling sensation to her right leg. She has HYPERFLEXIBILITY, and is with recurrent sacroiliac joint pain, however now with radicular symptoms extending to her right lower extremity with numbness to her right foot, will order Lumbar MRI to evaluate lumbar disc pathology, to be done at [facility], will bring a disc of the images for our review. 01/02/2025 Lumbar spondylosis (ICD-10 - M47.816) The patient has radiological and clinical evidence of moderately severe lumbar spondylosis that has been present greater than 3 months. And the patient has pain on extension and rotation in the spine. The patient had a positive pain response to facet loading maneuvers. The patient is not responding to conservative treatment for greater than 6 weeks. The patient has not responded to NSAID's for greater than 3 weeks. We will consider Bilateral L3 L4 L5 lumbar facet joint medial branch block to confirm the diagnosis. The procedure and its pros and cons were discussed with the patient. The patient understands that the procedure will work for a few hours, and the patient will be given a pain diary. If the pain symptoms respond to the diagnostic medial branch block, that will confirm the diagnosis. If the procedure helps the pain, we will consider radio frequency nerve ablation of the medial branches. The procedure will be completed in the office under fluoroscopy with no sedation. The patient has predominantly axial pain with no radiculopathy or neurogenic claudication. The pain is relieved with sitting. The patient consistently rates their pain 7/10. The oswestry screen was completed which shows moderately severe disability. 01/22/2025 Lumbar spondylosis (ICD-10 - M47.816) The patient has radiological and clinical evidence of moderately severe lumbar spondylosis that has been present greater than 3 months. And the patient has pain on extension and rotation in the spine. The patient had a positive pain response to facet loading maneuvers. The patient is not responding to conservative treatment for greater than 6 weeks. The patient has not responded to NSAID's for greater than 3 weeks. We will consider Bilateral L3 L4 L5 lumbar facet joint medial branch block to confirm the diagnosis. The procedure and its pros and cons were discussed with the patient. The patient understands that the procedure will work for a few hours, and the patient will be given a pain diary. If the pain symptoms respond to the diagnostic medial branch block, that will confirm the diagnosis. If the procedure helps the pain, we will consider radio frequency nerve ablation of the medial branches. The procedure will be completed in the office under fluoroscopy with no sedation. The patient has predominantly axial pain with no radiculopathy or neurogenic claudication. The pain is relieved with sitting. The patient consistently rates their pain 7/10. The oswestry screen was completed which shows moderately severe disability. 02/21/2025 Lumbar spondylosis (ICD-10 - M47.816) The patient has radiological and clinical evidence of moderately severe lumbar spondylosis that has been present greater than 3 months. And the patient has pain on extension and rotation in the spine. The patient had a positive pain response to facet loading maneuvers. The patient is not responding to conservative treatment for greater than 6 weeks. The patient has not responded to NSAID's for greater than 3 weeks. We will consider Bilateral L3 L4 L5 lumbar facet joint medial branch block to confirm the diagnosis. The procedure and its pros and cons were discussed with the patient. The patient understands that the procedure will work for a few hours, and the patient will be given a pain diary. If the pain symptoms respond to the diagnostic medial branch block, that will confirm the diagnosis. If the procedure helps the pain, we will consider radio frequency nerve ablation of the medial branches. The procedure will be completed in the office under fluoroscopy with no sedation. The patient has predominantly axial pain with no radiculopathy or neurogenic claudication. The pain is relieved with sitting. The patient consistently rates their pain 7/10. The oswestry screen was completed which shows moderately severe disability. 02/28/2025 Lumbar spondylosis (ICD-10 - M47.816) The patient has radiological and clinical evidence of moderately severe lumbar spondylosis that has been present greater than 3 months. And the patient has pain on extension and rotation in the spine. The patient had a positive pain response to facet loading maneuvers. The patient is not responding to conservative treatment for greater than 6 weeks. The patient has not responded to NSAID's for greater than 3 weeks. The patient has predominantly axial pain with no radiculopathy or neurogenic claudication. The pain is relieved with sitting. The patient consistently rates their pain 7/10. The oswestry screen was completed which shows moderately severe disability. 03/20/2025 Trochanteric bursitis, right hip (ICD-10 - M70.61) She is having pain to her right lateral hip, not allowing her to lay on her side. The patient presents with lateral pain of the RIGHT hip. On clinical exam the patient has tenderness over the right greater trochanteric bursa and gluteus medius. She also has pain when lying on the RIGHT side. Due to the patient's symptoms we will schedule the patient for a RIGHT trochanteric bursa injection., All pros and cons of the procedure were discussed with the patient and all questions were answered 03/20/2025 Trochanteric bursitis of left hip (ICD-10 - M70.62) The patient presents with lateral pain of the LEFT hip. On clinical exam the patient has tenderness over the right greater trochanteric bursa and gluteus medius. She also has pain when lying on the LEFT side. Due to the patient's symptoms we will schedule the patient for a LEFT trochanteric bursa injection., All pros and cons of the procedure were discussed with the patient and all questions were answered 01/02/2025 Lumbar radiculopathy (ICD-10 - M54.16) She reports that with walking, standing and sitting increases pain. She reports that pain is present and radiates to her right lateral lower extremity extending to her foot. She is also with numbness to her right foot. She states that she has a buckling sensation to her right leg. She has HYPERFLEXIBILITY, and is with recurrent sacroiliac joint pain,. 03/20/2025 Sacroiliitis (ICD-10 - M46.1) The patient presents in office for low back pain. On 08/07/24 we did a bilateral sacroiliac joint injection and the patient reported 50-70% of pain relief then pain was worse on her low back The previous therapeutic sacroiliac joint injection provided >80% relief of pain for atleast 3 months and improvement of ADL's. That also confirms the diagnosis of sacroiliitis. The patient is interested in repeating the procedure. All the pros and cons of the procedure were discussed with the patient. The risk of infection, bleeding, and pain were discussed with the patient. All questions were answered. The patient wants to proceed with the procedure. The procedure will be completed under fluoroscopy in the office with no sedation 01/02/2025 Trochanteric bursitis, right hip (ICD-10 - M70.61) She is having pain to her right lateral hip, not allowing her to lay on her side. The patient presents with lateral pain of the RIGHT hip. On clinical exam the patient has tenderness over the right greater trochanteric bursa and gluteus medius. She also has pain when lying on the RIGHT side. Due to the patient's symptoms we will schedule the patient for a RIGHT trochanteric bursa injection., All pros and cons of the procedure were discussed with the patient and all questions were answered 11/19/2024 Sacroiliitis (ICD-10 - M46.1) The patient presents in office for low back pain. On 08/07/24 we did a bilateral sacroiliac joint injection and the patient reported 50-70% of pain relief x 1 month. The patient is complaining of low back pain. The patient was recommended to take back precautions, and to avoid any heavy lifting, pushing and pulling activities, especially bending and rotation. And also avoid activities that aggravate the pain. We also recommend the patient to do daily exercises to improve abdominal strength and stretching of the hamstring and ITB muscles. The patient will wear appropriate shoewear when walking on hard surfaces. The patient complains of low back pain. We discussed the causes and the treatment options for the low back pain. The patient was recommended to take back precautions, and to avoid any activities that aggravate the symptoms. And home exercises were recommended. 06/27/2024 Lumbar spondylosis (ICD-10 - M47.816) 01/02/2025 Sacroiliitis (ICD-10 - M46.1) The patient presents in office for low back pain. On 08/07/24 we did a bilateral sacroiliac joint injection and the patient reported 50-70% of pain relief x 1 month. The patient was recommended to take back precautions, and to avoid any heavy lifting, pushing and pulling activities, especially bending and rotation. And also avoid activities that aggravate the pain. We also recommend the patient to do daily exercises to improve abdominal strength and stretching of the hamstring and ITB muscles. The patient will wear appropriate shoewear when walking on hard surfaces. The patient complains of low back pain. We discussed the causes and the treatment options for the low back pain. The patient was recommended to take back precautions, and to avoid any activities that aggravate the symptoms. And home exercises were recommended. 03/20/2025 Lumbar spondylosis (ICD-10 - M47.816) The patient had bilateral L3 L5 abalation with over 80% pain relief. The patient was recommended to take back precautions, and to avoid any heavy lifting, pushing and pulling activities, especially bending and rotation. And also avoid activities that aggravate the pain. We also recommend the patient to do daily exercises to improve abdominal strength and stretching of the hamstring and ITB muscles. The patient will wear appropriate shoewear when walking on hard surfaces. 11/19/2024 Other Off work slip written for patient to return to work on 11/21/24. Will defer [employer] paperwork to her PCP to complete. 03/20/2025 Other Plan Of Treatment Pending Test Test Name Order Date X ray : Shoulder, right 01/22/2021 MRI : Lumbar without contrast 11/19/2024 Next Appt Details Provider Name:BRANDIE HEREDIADEVONTE, 0 04/03/2025 02:00:00 PM, [address], [address], Provider Name:BRANDIE SAMUELSLiza, 1 10:30:00 AM, [address], [address], Insurance Providers Payer Name Payer Address Payer Phone Subscriber Number Group Number Insured Name Patient Relationship to Insured Coverage Start Date Coverage End Date [facility] [address] [place] [address] [id number] LUCIAN ESCOBAR Self - patient is the insured [facility] [address] [place] [address] [id number] LUCIAN ESCOBAR Self - patient is the insured Medical (General) History Medical History History ICD Code Asthma GERD Diverticulitis Endometriosis PCOS arthritis Fibromyalgia Reynauds syndrome Esophagus motility dysfunction Surgical History Surgery Date(Month/Year) Gallbladder/ Juju Fundoplication 0 Sinus surgery Endometrial ablation/Tubal ligation 2009 Hysterectomy 2013 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
--- NOTE | 2025-03-30 12:58 | ED.SKABFB ---
HPI - Skin/Abscess/Foreign Bdy General Chief complaint: Skin/Abscess/Foreign Body Stated complaint: groin abscess Time Seen by Provider: 03/30/25 12:31 Source: patient and family () Mode of arrival: ambulatory Limitations: no limitations History of Present Illness HPI narrative: Patient presents with concern for a right sided groin abscess, possibly Bartholin gland. First noticed a bump in this area 4 days ago. She tried to pop it, drained pus 2 days ago. Inflammation and size increasing. Was larger this morning though feels smaller now that in the ED, but like it has a rock hard knot in it. OBGyn Dr Mares. 2 months ago something somewhat similar happened although it was in a different spot and felt to be an ingrown hair, resolved without intervention. She also had 1 episode of bloody painful diarrhea this morning. Also vomited after [place] yesterday, 1 episode emesis. Previous esophageal surgeries as well as s/p fundiplication surgery x2. Previously saw GI doctor Kedar. History of diverticulum in stomach. History of ulcers. ? history of GI bleed. Not recently on PO steroids; only what is contained within Advair inhaler . Last use of NSAIDs was 1 month ago. No fevers/chills. Last colonoscopy 3 years ago approximately; had been told good for 5 years. ON [place] and has lost 30 lbs. Related Data Home Medications ?Medication ?Instructions ?Recorded ?Confirmed ?Last Taken ?Type albuterol sulfate 90 mcg/actuation 2 puff inhalation QID PRN 06/27/19 11/05/22 08/22/19 07:30 History aerosol inhaler Shortness Of Breath Or Wheezing tapentadol 50 mg tablet (Nucynta) 50 mg PO BID PRN Pain 06/27/19 11/05/22 Unknown History cetirizine 10 mg capsule (Zyrtec) 10 mg PO DAILY 08/16/19 11/05/22 08/21/19 History paroxetine HCl 20 mg tablet (Paxil) 40 mg PO HS 08/16/19 11/05/22 Unknown History cyclobenzaprine 10 mg tablet 10 mg PO TID PRN Spasms 12/17/21 11/05/22 Unknown History dextroamphetamine-amphetamine 30 30 mg PO DAILY 12/17/21 11/05/22 Unknown History mg tablet (Adderall) metaxalone 400 mg tablet 800 mg PO TID PRN Spasms 09/15/22 11/05/22 Unknown History Allergies Allergy/AdvReac Type Severity Reaction Status Date / Time morphine Allergy Severe Migraine Verified 03/30/25 12:06 povidone-iodine (From Allergy Severe Rash Verified 03/30/25 12:06 Betadine) yellow dye Allergy Severe Rash Verified 03/30/25 12:06 Penicillins Allergy Intermediate THROAT Verified 03/30/25 12:06 ITCHING AND SWELLING prochlorperazine Allergy Intermediate HIVES Verified 03/30/25 12:06 PMF Past Medical History Medical History History of stress test (~07/2019) Diverticulosis IBS (irritable bowel syndrome) Fibromyalgia Dysphagia Endometriosis Hemorrhoids Gastroesophageal reflux disease Asthma Surgical History Surgical History History of colonoscopy approx 2021 History of endometrial ablation (~2008) with Tubal Ligation History of hysterectomy (~2012) History of Juju fundoplication (~2015) History of sinus surgery (~2002) History of sinus surgery (~2000) History of cholecystectomy (~1999) History of Juju fundoplication (~1999) Family History Family History Other Family history of arthritis Family history of mental disorder Social History Social History Smoking status: Never smoker Alcohol intake: current Alcohol use details: rare Substance use: never Substance use type: does not use Living arrangements: with family Gender identity (if verbalized by the patient): Female Spiritual care concerns: No Exam Narrative: GENERAL: Well-appearing, well-nourished, and in no acute distress. HEAD: Normocephalic, atraumatic. EYES: Non injected, non icteric ENT: Nares clear, no rhinorrhea or epistaxis. Gross auditory acuity intact. NECK: Supple. No meningismus. CHEST: Speaking in full sentences. No respiratory distress. HEART: Regular rate and rhythm. . ABDOMEN: Soft, nondistended. No rigidity or guarding. Not peritoneal. No tenderness to palpation throughout. NISA: Performed with GHADA Hamilton present as computer forensics investigator. Normal rectal tone without external hemorrhoids. Normal rectal tone. FOBT/guiaic negative. : Performed with GHADA Hamilton present as computer forensics investigator. Mild swelling and induration of right labia, at 6:30 to 7pm position. Not currently draining but an area that appeared to have drained earlier. It seems to extend mildly into perineum but without vessicles/bullae/crepitus. EXTREMITIES: Normal range of motion. No lower extremity edema. SKIN: Warm, dry, no rash. NEURO: No focal deficits. Alert and oriented. Answering questions. Following commands. Normal speech without aphasia or dysarthria. PSYCH: Congruent mood and affect. Talkative. Course Vital Signs Vital signs: Vital Signs Temperature 98.2 F 03/30/25 12:02 Pulse Rate 80 03/30/25 12:02 Respiratory Rate 20 03/30/25 12:02 Blood Pressure 120/88 03/30/25 12:02 Pulse Oximetry 98 03/30/25 12:02 Oxygen Delivery Room Air 03/30/25 12:02 Temperature 98.2 F 03/30/25 12:02 Pulse Rate 80 03/30/25 12:02 Respiratory Rate 20 03/30/25 12:02 Blood Pressure 120/88 03/30/25 12:02 Pulse Oximetry 98 03/30/25 12:02 Oxygen Delivery Room Air 03/30/25 12:02 Procedures Abscess I/D labial: Date of Incision: 03/30/25 Time of Incision: 17:00 Side (if applicable): right Local Anesthetic: lidocaine 1% Amount of anesthesia used (mL): 3 Technique: incised with #11 blade Amount of fluid expressed (mL): 1 Irrigation: No Packing used?: none I&D Results: Blood Abcess I&D Additional Comments: No complications MDM - Skin/Abscess/Foreign Bdy MDM Narrative Medical decision making narrative: Patient presents with concern for right groin abscess. Also had an episode of painful bloody stool/BRBPR. Multiple GI issues previously, though typically upper GI. In the emergency department they are afebrile with vital signs within normal limits. Based on history and physical, suspect lower GI bleed so will go ahead and order CBC, CMP, coagulation studies, lactate, and type and screen. On physical exam, labial abscess (not in location of Bartholin gland). FOBT/guiaic negative. DDX bloody stool/BRBPR My differential diagnosis at this time is diverticulosis versus angiodysplasia versus Meckel's diverticulum. Colon cancer is also possible though less likely given colonoscopy in the past 3 years. Considered ischemic bowel or anal fissure, IBD/infectious diarrhea. Possibly hemorrhoids. CRP mildly elevated LRINEC Score: 0 points Morphine gives her a migraine but other opiates ok per patient. Very mild leukocytosis and elevated hemoglobin and hematocrit. I suspect this is due to hemoconcentration. No prior for comparison. 1L IV fluids ordered. This will probably help the ketonuria as well, mild. Microscopic hematuria. test not necessary as she is status post hysterectomy. Cheshire Score (predicts readmission risk in patients with acute lower GI bleeding) Based on age, sex, previous lower GI bleed admission, NISA findings, HR, SBP, and initial Hgb: 6 points 96?% Probability of safe discharge (absence of rebleeding, blood transfusion, therapeutic intervention, 28 day readmission, or ). Consider discharge, with appropriate precautions. == ESR normal. CT was concerning for cystitis but UA w/o this correlation, only microscopic hematuria. Urine culture ordered. No appreciable /perianal/antelmo-rectal abscess identified. Based on the labial abscess, will give clindamycin (discussed with pharmacist, avoiding Augmentin given listed allergy to penicillins). I&D performed as above. Culture obtained. Advised f/u with ObGyn and given referral contact info for GI. Also Rx for Bentyl Differential Diagnosis Differential diagnosis: Likely other (necrotizing skin infecting/nec fasc; labial abscess; Bartholin gland cyst/abscess) Lab Data Attestation: I reviewed the patient's lab results. Lab results narrative: CMP and lactic acidosis normal 03/30/25 13:20 03/30/25 13:20 Labs: Lab Results 03/30/25 03/30/25 Range/Units 13:20 13:21 WBC 10.1 H (4.5-10.0) K/mm3 RBC 5.55 H (4.2-5.4) M/mm3 Hgb 17.0 H (12.0-15.0) g/dL Hct 47.9 H (37.0-47.0) % MCV 86.3 (80-100) fl MCH 30.6 (26-34) pg MCHC 35.5 (32-36) g/dl RDW 13.2 (11.5-14.5) % Plt Count 264 (150-375) k/mm3 MPV 10.0 (7.4-10.4) fl Immature Gran % (Auto) 0.2 (0-0.5) % Neut % (Auto) 71.4 (45.5-73.1) % Lymph % (Auto) 18.2 L (18.3-44.2) % Boyle % (Auto) 10.0 H (2.6-8.5) % Eos % (Auto) 0.0 (0-4.4) % Baso % (Auto) 0.2 (0.2-1.2) % Lymph # (Auto) 1.83 (0.9-3.2) K/mm3 Boyle # (Auto) 1.0 H (0.1-0.6) K/mm3 Eos # (Auto) 0.0 (0-0.3) K/mm3 Baso # (Auto) 0.0 (0.0-0.1) K/mm3 Abs Immat Gran (auto) 0.02 (0.00-0.031) K/mm3 Absolute Neuts (auto) 7.2 H (1.3-6.7) K/mm3 Absolute Nucleated RBC 0.000 (0.0-0.012) K/mm3 Nucleated RBC % 0.0 (0.0-0.2) % ESR 12 (0-20) mm/hr PT 14.4 (11.1-14.7) Seconds INR 1.1 APTT 26.4 (22.3-36.8) Seconds Sodium 137 (137-145) mmol/L Potassium 4.0 (3.4-5.0) mmol/L Chloride 102 (98-107) mmol/L Carbon Dioxide 25 (22-30) mmol/L Anion Gap 10 (4-12) mmol/L BUN 11 (7-17) mg/dL Creatinine 0.73 (0.7-1.0) mg/dL Estim Creat Clear Calc 77 ml/min Estimated GFR > 60 (59 - ) Glucose 82 (65-110) mg/dL Lactic Acid 1.1 (0.7-2.0) mmol/L Calcium 9.3 (8.4-10.2) mg/dL Total Bilirubin 1.1 (0.2-1.3) mg/dL AST 24 (14-36) U/L ALT 13 (6-35) U/L Alkaline Phosphatase 66 (38-126) U/L C-Reactive Protein 1.2 H (<1.0) mg/dL Total Protein 8.1 (6.3-8.2) g/dL Albumin 4.4 (3.5-5.1) g/dL Lipase 66 Cancelled (23-300) U/L Urine Color Yellow (Yellow) Urine Appearance Clear (Clear) Urine pH 5.5 (5.0-9.0) Ur Specific [place] 1.030 (1.001-1.035) Urine Protein Trace (Negative) mg/dL Urine Glucose (UA) Negative (Negative) mg/dL Urine Ketones 1+ H (Negative) mg/dL Ur Blood (Man) Trace (Negative) Urine Nitrate Negative (Negative) Urine Bilirubin Negative (Negative) Urine Urobilinogen 1.0 (<2.0) mg/dL Leukocyte Esterase Rfl Negative (Negative) LANE/UL Urine RBC 3-5 H (0-2) /hpf Urine WBC 0-5 (0-3) /hpf Ur Squamous Epith Cells Moderate (Few) /hpf Urine Bacteria None seen /hpf Urine Casts 0-2 Imaging Data Radiologist's impression: Impressions Abdomen/Pelvis CT 03/30/25 15:23 IMPRESSION: 1. There is no perineum abscess identified. No soft tissue abnormality appreciated. 2. Probable cystitis Discharge Plan Discharge Clinical Impression: Abscess of labia, Bloody diarrhea, CRP elevated, Hematuria, microscopic Patient Disposition: Home Condition: Stable Instructions: Antibiotic Form, Gastrointestinal Bleeding (ED), Rectal Bleeding (ED), Acute Diarrhea (ED), Abscess Incision and Drainage (DC) Additional Instructions: You received your 1st dose of antibiotic in the emergency department and the rest of the course has been prescribed. Follow-up with your Ob Gyne, particularly if recurs. For new or worsening symptoms, return to the emergency department. Referral contact information for a new manager communication has also been listed. For persistent abdominal pain, you can trial Bentyl which works on the smooth muscle of the GI tract. Patient Language: Yakut Prescriptions: New clindamycin HCl [Cleocin HCl] 300 mg capsule 300 mg PO BID 5 Days Qty: 9 0RF Rx Instructions: rec'd first dose in ED dicyclomine 20 mg tablet 20 mg PO BID 10 Days Qty: 20 0RF No Action dextroamphetamine-amphetamine [Adderall] 30 mg tablet 30 mg PO DAILY cyclobenzaprine 10 mg tablet 10 mg PO TID PRN (Reason: Spasms) paroxetine HCl [Paxil] 20 mg Tablet 40 mg PO HS Zyrtec 10 mg Capsule 10 mg PO DAILY metaxalone 400 mg Tablet 800 mg PO TID PRN (Reason: Spasms) hydrocodone-acetaminophen 5-325 mg tablet 1 tablet PO Q4H PRN (Reason: pain) Qty: 20 0RF albuterol sulfate 90 mcg/actuation HFA aerosol inhaler 2 puff INHALATION QID PRN (Reason: Shortness Of Breath Or Wheezing) Nucynta 50 mg tablet 50 mg PO BID PRN (Reason: Pain) dicyclomine 20 mg tablet 20 mg PO TID Qty: 90 1RF Follow-up/Referrals: Simón Lizarraga MD [Physician, CUSTOMER ENGAGEMENT REPRESENTATIVE] Henrry,CHANCE Nogueira [Primary Care Provider, Unknown] Andrzej Mendoza MD [Physician, Gastroenterology] Stand Alone Forms: Work/School Release IP Time of Disposition: 17:07
[2025-03-30 13:47] LABS: Hematocrit 47.9 % (37.0-47.0); Hemoglobin 17.0 g/dL (12.0-15.0); Immature Granulocyte Percent A 0.2 % (0-0.5); Lymphocytes Absolute Auto 1.83 K/mm3 (0.9-3.2); Mean Corpuscular HGB Conc 35.5 g/dl (32-36); Mean Corpuscular Hemoglobin 30.6 pg (26-34); Mean Corpuscular Volume 86.3 fl (80-100); Nucleated Red Blood Cells Absolute Auto 0.000 K/mm3 (0.0-0.012); Nucleated Red Blood Cells Perc 0.0 % (0.0-0.2); Platelet Count Result 264 k/mm3 (150-375); Red Blood Count 5.55 M/mm3 (4.2-5.4); White Blood Count 10.1 K/mm3 (4.5-10.0)
[2025-03-30 13:54] LABS: Add Urine Microscopic? YES; Appearance Urine Clear (Clear); Glucose Urine UA Negative (Negative); Leukocyte Esterase Ur Negative LEU/UL (Negative); Nitrate Urine Negative (Negative); Non Pathogenic Casts 0-2; Specific Grav Ur 1.030 (1.001-1.035)
[2025-03-30 14:01] LABS: Alanine Aminotransferase 13 U/L (6-35); Albumin Level 4.4 g/dL (3.5-5.1); Alkaline Phosphatase 66 U/L (38-126); Anion Gap 10 mmol/L (4-12); Aspartate Amino Transferase 24 U/L (14-36); Bilirubin,Total 1.1 mg/dL (0.2-1.3); Blood Urea Nitrogen 11 mg/dL (7-17); CRP 1.2 mg/dL (<1.0); Calcium 9.3 mg/dL (8.4-10.2); Carbon Dioxide 25 mmol/L (22-30); Chloride 102 mmol/L (98-107); Estimated CRCL calculation 77 ml/min; Estimated Glomerular Filt Rate > 60; Glucose 82 mg/dL (65-110); Lipase 66 U/L (23-300); Potassium 4.0 mmol/L (3.4-5.0); Sodium 137 mmol/L (137-145); Total Protein 8.1 g/dL (6.3-8.2)
[2025-03-30 14:06] LABS: INR 1.1; Partial Thromboplastin Time 26.4 Seconds (22.3-36.8); Prothrombin Time 14.4 Seconds (11.1-14.7)
[2025-03-30] MEDS: SODIUM CHLORIDE 0.9% IV 1,000 ML 999 ML IV CONT (14:25)
[2025-03-30] MEDS: FAMOTIDINE 20 MG/2 ML VIAL IV PUSH (14:25)
[2025-03-30] MEDS: ONDANSETRON INJ 4 MG/2 ML VIAL IV PUSH (14:25)
[2025-03-30] MEDS: HYDROcodone/acetaminophen (*CRX) 10-325 MG TABLET 1 TAB PO (14:25)
[2025-03-30] MEDS: DICYCLOMINE HCL 10 MG CAPSULE 20 MG PO (17:17)
[2025-03-30] MEDS: CLINDAMYCIN HCL 150 MG CAP 300 MG PO (17:18)
== END 2025-03-30 17:28 | disposition home or self-care (01) ==
PROVIDERS: Emergency Provider Student in an Organized Health Care Education/Training Program; PCP Physician Assistant
DX: N76.4 Abscess of vulva (principal); R19.7 Diarrhea, unspecified; R79.82 Elevated C-reactive protein (CRP); R31.29 Other microscopic hematuria
CPT/HCPCS: 36415; 56405; 74177; 80053; 81001; 83605; 83690; 85025; 85610; 85652; 85730; 86140; 87075; 87077; 87086; 87186; 87205; 96361; 96374; 96375; 99284; A9270; J2405; J7030; Q9967

== ENCOUNTER 2025-06-21 11:34 | Emergency (ER) | payer BC, OTHER, SELFPAY ==
--- OUTSIDE RECORDS SUMMARY | 2024-12-03 04:30 | XMS_ITS ---
Author Organization [facility] Address [address] [facility] [address] [place] [address] Care Team Providers Care Machine Tool Technology Instructor Name Role Phone SAUMYA EDMOND Primary Care Provider Unavailab BRANDIE Marie Unavailable [phone] Uday LOPEZ, Laura Unavailable Unavailable Encounters Encounter Location Date Provider Diagnosis [facility] [address] [address] 12/03/2024 BRANDIE ATKINSON Plan Of Treatment No Information Progress Notes * LUCIAN ESCOBARDOB:1975 (49 yo F)Acc No.[id number]:12/03/2024 Progress Note Patient: LUCIAN NICHOLS Provider: Gay ATKINSON M.D. :1975 A ge:49 Y S ex:Female Date:12/03/2024 Address:[address] [facility] Pcp:SAUMYA EDMOND Subjective: * Chief Complaints: * * Medical History: Objective: * Vitals: Assessment: Plan: * Treatment: * * Electronic signature of KRUNAL ATKINSON MD on 06/21/2025 at 11:38 AM SHOT CORE DRILL OPERATOR Sign off status: Pending * Provider: Gay ATKINSON M.D. Date: 12/03/2024 Generated for Melo avery/Famadinag/eTransmitting on: 1 08/22/2024 11:38 AM SHOT CORE DRILL OPERATOR
--- NOTE | ~2025-06-21 | CT_ITS ---
CT HEAD NON-CONTRAST Clinical History: headache Comparison: None Technique: Unenhanced axial images skull base to vertex Coronal, sagittal reformats CT images acquired with automatic exposure control for dose reduction DLP: 530 mGy-cm Findings: Sulci, ventricles: Unremarkable. No intracerebral hemorrhage. No evidence acute territorial infarct. No mass effect, midline shift. Bony calvarium intact. Visualized paranasal sinuses: Clear. Mastoid air cells: Clear. IMPRESSION: 1. No acute intracranial findings. Reviewed, dictated and finalized at location R. ULTING SYSTEMS ENGINEER
--- OUTSIDE RECORDS SUMMARY | 2025-06-21 11:38 | XMS_ITS | Encounter Summary ---
Author Organization [facility] Address [address] [place] [id number] Care Team Providers Care Visual Design Lead Name Role Phone Mirlande Sales Primary Care Provider [phone] Encounter Details Date Type Department Care Team (Late st Contact Info) Description 01/12/2023 MyChart Message Enc [facility] - [facility] [address] [place], [place] [address] [employer], [facility] Provider Air Quality Message Social History Tobacco Use Types Packs/Day Years Used Date Smoking Tobacco: Never Smokeless Tobacco: Never Alcohol Use Standard Drinks/Week Comments Yes 0 (1 standard drink = 0.6 oz pur e alcohol) 2 x/year PHQ-2 Answer Date Recorded Patient Health Questionnaire-2 Score 2 08/27/2022 Comments No Sex and Gender Information Value Date Recorded Sex Assigned at Female 03/11/2025 12:53 PM CDT Legal Sex Female 6:29 PM CDT Gender Identity Not on file Sexual Orientation Not on file documented as of this encounter Functional Status * RETIRED Are you deaf or do you have serious difficulty hearing Answer Date of Assessment Author Status No 07/19/2019 12:32 PM SHIPPING COORDINATOR Acti ve * RETIRED Are you blind or do you have serious difficulty seeing, even when wearing glasses? Answer Date of Assessment Author Status No 07/19/2019 12:32 PM SHIPPING COORDINATOR Acti ve * Do you have serious difficulty walking or climbing stairs? Answer Date of Assessment Author Status No 07/19/2019 12:32 PM SHIPPING COORDINATOR Tati Muhammad RN Active * Do you [...] Care Team (Late st Contact Info) Description 11/28/2025 11:20 AM CDT Office Visit [facility] Multispecialty Care - [facility] [address] [place] [address] Rehan Bhatt MD [address] [place] [address] documented as of this encounter Visit Diagnoses Not on filedocumented in this encounter Additional Health Concerns Assessment Noted Time PHQ-9 Depression Total Score: 0 01/01/20 21 9:09 AM CDT documented as of this encounter Care Teams Visual Design Lead Relationship Specialty Start Date End Date Mirlande Sales PA PCP - General PHYSICIAN FISHER NET 07/18/19 documented as of this encounter
--- OUTSIDE RECORDS SUMMARY | 2025-06-21 11:38 | XMS_ITS | Clinical Summary ---
Author Organization [address] Address [address] [place] [address] Care Team Providers Care Interlibrary Loan Specialist Name Role Phone Henrry Mirlande HOWARD Primary [...] once as needed for anaphylaxis 0 0 06/12/20 14 Active biotin 1 mg capsule 1 mg. 0 0 06/12/20 14 Active diphenhydrAMIN E (BENADRYL) 25 mg capsule 25 mg. 0 0 06/12/20 14 Active cetirizine (ZyrTEC) 10 mg tablet TAKE ONE TABLET BY MOUTH ONCE DAILY 30 0 01/22/20 15 Active omeprazole (PriLOSEC) 40 mg capsule Take 1 capsule daily. 90 3 06/12/20 14 Active ipratropium-al buterol (DUONEB) 0.5-2.5 mg/3 mL nebulizer solution inhale 3 milliliter by nebulization route 4 times every day prn asthma exacerbation 180 ampule 2 06/12/20 14 Active ibuprofen (ADVIL,MOTRIN) 200 mg tablet take 1 tablet (200MG) by oral route every 6 hours as needed with food 0 02/22/20 12 Active PARoxetine (PAXIL) 20 mg tablet 1 02/10/20 17 Active fluticasone-sa lmeterol (ADVAIR DISKUS) 500-50 mcg/dose diskus inhalerIndicat ions:Bronchosp asm Prevention with COPD,Maintenan ce Therapy for Asthma Take 1 inhalation twice daily approximately 12 hours apart. Rinse and gargle after each use. 60 each 5 06/06/20 17 Active ergocalciferol (Vitamin D2) 50,000 unit capsule Take 1 capsule (50,000 Units total) by mouth 2 (two) times a week 30 capsule 3 07/05/20 19 Active benralizumab (Fasenra Pen) 30 mg/mL auto-injector [...] mg tablet 1 tablet (1 mg total) 11/16/19 23 Active nystatin powder Active clobetasoL (TEMOVATE) 0.05 % external solution 12/13/19 24 Active dextroamphetam ine-amphetamin e XR (ADDERALL XR) 30 mg 24 hr capsule 02/21/20 24 Active albuterol HFA (PROVENTIL HFA,VENTOLIN HFA,PROAIR HFA) 90 mcg/actuation inhaler 11/30/19 25 Active cholecalcifero l (VITAMIN D-3) 50,000 unit capsule Take 1 capsule (50,000 Units total) by mouth once a week 10/07/19 25 Active Caplyta 10.5 mg capsule 11/20/19 25 Active dextroamphetam ine-amphetamin e (ADDERALL) 10 mg tablet Take 1 tablet (10 mg total) by mouth daily for 30 days 10/21/19 25 Active spironolactone (ALDACTONE) 100 mg tabletIndicati ons:Hirsutism Take 1 tablet (100 mg total) by mouth 2 (two) times a day 60 tablet 11 12/06/19 25 Active estrogens-meth ylTESTOSTERone (EEMT,COVARYX) 0.625-1.25 mg per tablet Take 1 tablet by mouth daily 12/19/19 25 Active semaglutide (WEGOVY) 1 mg/0.5 mL auto-injectorI ndications:Lane ght Loss Management for Obese Patient (BMI >= 30) Inject 1 mg under the skin every 7 days 6 mL 06/10/20 25 026 Active semaglutide (WEGOVY) 1 mg/0.5 mL auto-injectorI ndications:Lane ght Loss Management for Obese Patient (BMI >= 30) Inject 1 mg under the skin every 7 days 6 mL 3 12/06/19 25 025 Discontin ued(Reord er) Active Problems Problem [...] at the [facility] at [place]. She is going to consider that. Tonsil [...] 06/05/2019 Assessment & Plan (06/05/2019 1:12 PM GRADUATE ASSISTANT): Check 25 OH vit D Adjust [...] Metformin Assessment & Plan (06/05/2019 1:11 PM GRADUATE ASSISTANT): Diet and exercise Continue metformin Assessment [...] Aldactone Assessment & Plan (06/05/2019 1:12 PM GRADUATE ASSISTANT): Increase aldactone 100 mg bid Check [...] glucose 07/06/2011 Overview (10/22/2016): IMPAIRED FASTING GLUCOSE Encounters Date Type Department Care Team Description 06/10/2025 Telephone [facility] Medical [facility] Diabetes and Endocrinology [address] [place] [id number] Nimo Fajardo, EXCEPTIONAL STUDENT EDUCATION AIDE Refill request (Christopher) from Last 3 Months Immunizations Immunization Administration Dates Next Due DTaP 07/18/2002 Influenza, Quadrivalent, Spl it, Preservative Free, Intramuscular 07/19/2019 [employer] Phar[employer] (J&J) SARS-CoV-2 Vaccination 09/22/2020 Pneumococcal Polysaccharide PPV23 [...] GERD Endometritis 1992 endometriosis Hx Other Medical 2009 neural foramina l narrowing Asthma Asthma Hx Other Medical Not /claustroph obic; Comments: [facility] 02/12/2014 - Type 2 diabetes mellitus Diabete s type 2; Comments: [facility] 06/12/2014 - Hx Other Medical abnormal PAP; C omments: [facility] 06/12/2014 - Hx Other Medical bronchiectasis; Comments: [facility] 06/12/2014 - Hx Other Medical chronic back pa in; Comments: [facility] 06/12/2014 - Anxiety disorder Anxiety Chronic obstructive pulmonary disease COPD Depression Depression Hypertension Hypertension Hx Other Medical chronic sinusit is; Comments: [facility] 06/12/2014 - Hx Other Medical tremor; Comment s: [facility] 06/12/2014 - Hx Other Medical 2013 hysterectomy [...] on file Legal Sex Female 9:05 PM GRADUATE ASSISTANT Gender Identity Not on file Sexual [...] request sample to be sent to [facility] for Hepatitis C Virus (HCV) RNA Detection and Quantitation by Real-Time Reverse Safety Scientist-PCR (RT-PCR). Current interpretive data was last revised [...] on 2008. Serum 11/27/2014 2:31 PM CDT Jm Knight MD LAB BLOOD ORDERABLES Final Result HISTORICAL RESULTS from Last 3 Months or Most Recently Relevant to Health Maintenance Insurance [facility] FEDERAL [facility] [employer] Care Teams Interlibrary Loan Specialist Relationship Specialty Start Date End Date Mirlande Sales PA PCP - General 10/15/16
--- OUTSIDE RECORDS SUMMARY | 2025-06-21 11:39 | XMS_ITS | Clinical Summary ---
Author Organization [facility] Address [address] [place] [address] Care Team Providers Care Grass Cutter Name Role Phone Mirlande Bedoya Primary Care Pr ovider Darwin Cavazos MD Unavailable [phone] Source Comments [facility],non-owned Affiliates and Associated Physician Practices is amultiple site organization consisting of ambulatory clinics and hospital sitesin [place], [place], [place] and [place]. This disclosure is being madepursuant to the Care Everywhere program and may not contain all information available regarding this patient. Last updated 18.[facility] Allergies Active Allergy Reactions Criticality Noted Date [...] 1 6 Active vitamin D, ergocalciferol, (DRISDOL) 45093 UNITS capsule Take 50,000 Units by mouth [...] Comments Blood Pressure 118/76 06/06/2023 12:37 PM ACCOUNT EXECUTIVE TRAINEE Pulse 66 06/06/2023 12:37 PM ACCOUNT EXECUTIVE TRAINEE Temperature 36.4 C (97.6 F) 06/06/2023 12:37 PM ACCOUNT EXECUTIVE TRAINEE Respiratory Rate 18 09/19/2017 3:17 PM ACCOUNT EXECUTIVE TRAINEE Oxygen Saturation 98% 12/28/2022 2:23 PM CDT Inhaled Oxygen Concentration - - Weight 86.8 kg (191 lb 6.4 oz) 06/06/2023 12:37 PM ACCOUNT EXECUTIVE TRAINEE Height 162.6 cm (5' 4) 06/06/2023 12:37 PM ACCOUNT EXECUTIVE TRAINEE Body Mass Index 32.85 06/06/2023 12:37 PM ACCOUNT EXECUTIVE TRAINEE Plan of Treatment Health Maintenance Due Date [...] this topic Medical Devices Implanted Type Area Steel Manager Device Identifier Shelf Expiration Date Model / Serial / Lot Graft Tissue Sis Es Prcn Aclr Clgn Mtrx Implanted:Qty: 1 on 05/27/2016 by Darwin Cavazos MD at [facility] [employer] 08/31/2017 [id number] / / [id number] Procedures Procedure Name Priority Date/Time Associated Diagnosis Comments COMPREHENSIVE METABOLIC PANEL 06/28/2022 8:13 AM ACCOUNT EXECUTIVE TRAINEE from Last 3 Months or Most Recently Relevant to Health Maintenance Results * COMPREHENSIVE METABOLIC PANEL (06/28/2022 8:13 AM ACCOUNT EXECUTIVE TRAINEE) Glucose 85 65 - 99 mg/dL [facility] [...] 29 U/L [facility] Comment: Test Performed at: [facility] [place] [address] [place] [address] LINDSEY MONTANA DO,MPH 06/28/2022 8:13 AM ACCOUNT EXECUTIVE TRAINEE 06/28/2022 8:14 AM ACCOUNT EXECUTIVE TRAINEE us Morales Alcazar MD LAB - CHEMISTRY ORDERABLES Final Result [facility] [id number] [place] [address] from Last 3 Months or Most Recently Relevant to Health Maintenance Insurance [facility] Address: [facility] [id number] [place] [address] Advance Directives * Full Code (Latest Code Status on File) Date Activated Date Inactivated Comments 05/27/2016 12:35 PM 05/28/2016 3:28 PM Care Teams Grass Cutter Relationship Specialty Start Date End Date Mirlande Bedoya PA [address] [place] [address] PCP - General Physician Apartment Groundskeeper 01/26/16 Darwin Cavazos MD [facility] [address] [place] [address] Surgery 04/26/16
--- OUTSIDE RECORDS SUMMARY | 2025-06-21 11:39 | XMS_ITS | Patient Health Record ---
Author Organization [facility] [employer] Address [address] [place] [address] Care Team Providers Care Medical Imaging Director Name Role Phone Ana Koenig Unavailable [phone] Reason For Referral No Information Medications Medication SIG (Take, Route, Frequency, Duration) Notes Start Date End Date Status Chlorhexidine Gluconate 0.12% Solution Mouth/Throat 09/10/2020 Active Montelukast Sodium 10 MG Tablet Oral 09/10/2020 Active Cholecalciferol 1.25 MG (67161 UT) Capsule Oral 09/10/2020 Active PARoxetine HCl 40 MG Tablet Oral 09/10/2020 Active valACYclovir HCl 500 MG Tablet Oral 09/10/2020 Active PARoxetine HCl 30 MG Tablet Oral 09/10/2020 Active Azithromycin 500 MG Tablet Oral 09/10/2020 Active PARoxetine HCl 20 MG Tablet Oral 09/10/2020 Active FLUTICASONE 500 MCG-SALMETEROL 50 MCG/DOSE BLISTR POWDR FOR INHALATION *Reorder from [facility] for eRx and Interaction Alerts* [...] Vaccine Route Administration Date Status Comme nts Pneumococcal polysaccharide PPV23 Unknown 12/19/2016 Ad ministered Pneumococcal polysaccharide PPV23 Unknown 01/08/2017 Ad ministered Novel [id number], preservative free Unknown 07/19/2019 Administered DTaP Unknown 07/18/2002 Administered Social History Social History Additional Details Category Social Info Options Details Migrated Social History Migrated Social History Tobacco Years: Former smoker 09/10/2020 Plan Of Treatment No Information Insurance Providers Payer Name Payer Address Payer Phone Subscriber Number Group Number Insured Name Patient Relationship to Insured Coverage Start Date Coverage End Date [employer] [employer] [address] [place] [address] [id number] LUCIAN STAFFORD Self - patient is the insured Medical (General) History Surgical History Surgery Date(Month/Year) Hysterectomy/revise vagina (76053) Endometr ablate thermal (23858) Cholecystectomy (28455285)
--- OUTSIDE RECORDS SUMMARY | 2025-06-21 11:39 | XMS_ITS | Clinical Summary ---
Author Organization [employer] [facility] Address [address] [facility] [email or web address] [address] Care Team Providers Care Photographic Specialist Name Role Phone Pcp, No Primary Care Provider [phone] Social History Tobacco Use Types Packs/Day Years Used Date Smoking Tobacco: Never Assessed Comments Unknown Sex and Gender Information Value Date Recorded Sex Assigned at Not on file Legal Sex Female 3:41 PM EST Gender Identity Not on file Sexual Orientation Not on file Plan of Treatment Not on file Medical Devices Not on file [place] [address] [place] [address] Care Teams Photographic Specialist Relationship Specialty Start Date End Date Pcp, Mariya PCP - General Family Medicine 07/16/20
--- OUTSIDE RECORDS SUMMARY | 2025-06-21 11:39 | XMS_ITS | Patient Health Record ---
Author Organization [facility] [employer] Address [address] [facility] [address] [place] [address] Care Team Providers Care Magnetic Tape Composer Operator Name Role Phone DEDRAMICHAELMona SAUMYA Primary Care Provider Unavailab BRANDIE Marie Unavailable [phone] Laura Frye MD Unavailable Unavailable Allergies Allergen [...] Duration) Notes Start Date End Date Status clonazePAM 0.5 MG 1 tablet at bedtime Orally Once a day Active Estradiol 1 MG 1 tablet Orally Once a day; Duration: 30 day(s) Active Lidocaine 5 % UNWRAP AND APPLY 1 P ATCH TO THE SKIN EVERY DAY. REMOVE AND DISCARD WITHIN 12 HOURS OR DIRECTED.; Duration: 30 Active Sudafed 30 MG 2 tablets as needed [...] Twice a day Active Ventolin HFA Active Spironolactone 100 MG 1 tablet Orally [...] Orally Once a day Active Omeprazole Active Folic Acid 1 MG 1 tablet Orally Once a day; Duration: 30 day(s) Active Problems Problem Type SNOMED Code ICD Code Onset Dates Problem Status W/U Status Risk Notes Problem Localized, primary osteoarthritis of the hand (955536364) Unilateral primary osteoarthritis of first carpometacarpal joint, right hand (M18.11) Active confirmed Problem Localized, primary osteoarthritis of the hand (784384858) Unilateral primary osteoarthritis of first carpometacarpal joint, left hand (M18.12) Active confirmed Problem Trochanteric bursitis of right hip (090440881381135) Trochanteric bursitis, right hip (M70.61) Active confirmed Problem Pain in right arm (645425674) Pain in right arm (M79.601) Active confirmed Problem Fibromyalgia (610814853) Fibromyalgia (M79.7) Active confirmed Problem Sacroiliitis (44150368) Sacroiliitis (M46.1) Active confirmed Problem Trochanteric bursitis of left hip (969129458840624) Trochanteric bursitis of left hip (M70.62) Active confirmed Problem Lumbar radiculopathy (649758077) Lumbar radiculopathy (M54.16) Active confirmed Problem Cervical spondylosis without myelopathy (140219745) Spondylosis of cervical region without myelopathy or radiculopathy (M47.812) Active confirmed Problem Pain in limb (48202186) Pain of left arm (M79.602) Active confirmed Problem Localized, primary osteoarthritis of the shoulder region (484085008) 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) Active confirmed Problem Lumbar spondylosis (359143054) Lumbar spondylosis (M47.816) Active confirmed Problem Spinal enthesopathy of cervical region (190723495062974) Spinal enthesopathy of cervical region (M46.02) Active confirmed Problem Cervical myofascial pain syndrome (834229049) Cervical myofascial pain syndrome (M79.18) Active confirmed Problem Myofascial pain syndrome of thoracic spine (35926809955489) Myofascial pain syndrome of thoracic spine (M79.18) Active confirmed Vital Signs Heart Rate 60 /min 06/11/2025 Temperature 98.6 degrees Fahrenheit 06/11/2025 Blood pressure diastolic 80 mm Hg 06/11/2025 Height 64 in 06/11/2025 Blood pressure systolic 118 mm Hg 06/11/2025 Weight 168 lbs 06/11/2025 BMI 28.83 kg/m2 06/11/2025 Encounters Encounter Location Date Provider Diagnosis [facility] [address] [place] [address] 06/27/2024 BRANDIE AHMAD Sacroiliitis M46.1 a nd Lumbar spondylosis M47.816 [facility] [address] [place] [phone] 08/07/2024 BRANDIE AHMAD Sacroiliitis M46.1 [facility] [address] [place] [phone] 11/19/2024 BRANDIE AHMAD Lumbar radiculopathy M54.16 ; Trochanteric bursitis, right hip M70.61 and Sacroiliitis M46.1 [facility] [address] [place] [address] 01/02/2025 BRANDIE AHMAD Lumbar spondylosis M47.816 ; Lumbar radiculopathy M54.16 ; Trochanteric bursitis, right hip M70.61 and Sacroiliitis M46.1 [facility] [address] [place] [address] 01/22/2025 BRANDIE AHMAD Lumbar spondylosis M47.816 [facility] [address] [place] [phone] 02/21/2025 BRANDIE AHMAD Lumbar spondylosis M47.816 [facility] [address] [place] [phone] 02/28/2025 BRANDIE AHMAD Lumbar spondylosis M47.816 [facility] [address] [address] 03/20/2025 BRANDIE ATKINSON Trochanteric bursiti s, right hip M70.61 ; Trochanteric bursitis of left hip M70.62 ; Sacroiliitis M46.1 and Lumbar spondylosis M47.816 [facility] [address] [facility] [address] [address] 04/03/2025 BRANDIE ATKINSON Trochanteric bursiti s, right hip M70.61 and Trochanteric bursitis of left hip M70.62 [facility] [address] [facility] [place] [address] [address] 05/16/2025 BRANDIE ATKINSON Sacroiliitis M46.1 [facility] [address] [address] 06/11/2025 BRANDIE ATKINSON Sacroiliitis M46.1 ; Trochanteric bursitis, right hip M70.61 ; Trochanteric bursitis of left hip M70.62 and Lumbar spondylosis M47.816 [facility] [address] [address] 02/21/2025 BRANDIE ATKINSON [facility] [address] [address] 03/11/2025 BRANDIE ATKINSON Assessments Encounter Date Diagnosis (ICD Code) Assessment Notes Treatment Notes Treatment Clinical Notes Section Notes 06/27/2024 Sacroiliitis (ICD-10 - M46.1) The patient [...] lumbar disc pathology, to be done at [facility], will bring a disc of the images [...] the patient and all questions were answered 04/03/2025 Trochanteric bursitis, right hip (ICD-10 - M70.61) [...] the patient and all questions were answered 05/16/2025 Sacroiliitis (ICD-10 - M46.1) The patient presents [...] fluoroscopy in the office with no sedation 06/11/2025 Sacroiliitis (ICD-10 - M46.1) The patient presents in office for low back pain. 05/16/25 we did the bilateral theraputic sacroiliac joint injection. On 08/07/24 we did a bilateral sacroiliac joint injection and the patient reported 50-70% of pain relief then pain was worse on her low back The previous therapeutic sacroiliac joint injection provided >80% relief of pain for atleast 3 months and improvement of ADL's. The previous therapeutic sacroiliac joint injection provided [...] and to only do exercises as tolerated. 06/11/2025 Trochanteric bursitis, right hip (ICD-10 - M70.61) [...] symptoms we will schedule the patient for PT,. 04/03/2025 Trochanteric bursitis of left hip (ICD-10 - [...] appropriate shoewear when walking on hard surfaces. 06/11/2025 Trochanteric bursitis of left hip (ICD-10 - M70.62) The patient presents with lateral pain of the LEFT hip. On clinical exam the patient has tenderness over the right greater trochanteric bursa and gluteus medius. She also has pain when lying on the LEFT side. Due to the patient's symptoms we will schedule the patient for PT. 06/11/2025 Lumbar spondylosis (ICD-10 - M47.816) The patient had bilateral L3- L5 abalation with over 80% pain relief. [...] 01/22/2021 MRI : Lumbar without contrast 11/19/2024 Insurance Providers Payer Name Payer Address Payer Phone Subscriber Number Group Number Insured Name Patient Relationship to Insured Coverage Start Date Coverage End Date [facility] [address] [place], [place] [id number] [id number] LUCIAN ESCOBAR Self - patient is the insured [facility] [address] [place] [address] [id number] LUZ LUCIAN Self - patient is the insured Medical (General) History Medical History History ICD Code Asthma GERD Diverticulitis Endometriosis PCOS arthritis Fibromyalgia Reynauds syndrome Esophagus motility dysfunction Surgical History Surgery Date(Month/Year) Gallbladder/ Juju Fundoplication 0 Sinus surgery Endometrial ablation/Tubal ligation 2009 Hysterectomy 2013 Multiple oracle forms developer procedures for Endometrosis ovarian removal 09/24/22
--- OUTSIDE RECORDS SUMMARY | 2025-06-21 11:39 | XMS_ITS | Clinical Summary ---
Author Organization [facility] Address [address] [place] [address] Care Team Providers Care Record Tabulating Clerk Name Role Phone Mirlande Sales Primary Care Provider [phone] Allergies Active Allergy Reactions Criticality Noted Date Comments Prochlorperazine Hives 07/18/2019 Lidocaine Unknown 11/23/2024 Morphine Headache 07/18/2019 Penicillins Throat swelling 07/18/2019 Povidone Iodine Itching,Rash,Swelling Medium 2 Tape Unknown 03/06/2024 Tartrazine Unknown 12/22/2022 Yellow Dye #6 ([place] Yellow) Rash Low 2019 Medications albuterol (2.5 MG/3ML) 0.083% nebulizer solution Take 2.5 mg by nebulization every 6 (six) hours as needed for Wheezing. Active spironolactone 100 MG tablet Take 1 tablet (100 mg total) by mouth daily. Active vitamin D2, ergocalciferol, 51467 UNITS capsule Take 1 capsule (50,000 Units [...] MORNING AND EVENING NEEDED 07/08/20 21 Active PARoxetine (PAXIL) 20 MG tablet Take 1 tablet (20 mg total) by mouth every morning. 04/25/20 24 Active amphetamine-dext roamphetamine XR (ADDERALL XR) [...] daily. 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 360 mL 1 04/29/20 23 025 Discontin ued(Reord er) Active Problems Problem [...] 09/13/2021 Chest pain 07/18/2019 Asthma in adult 02/15/2017 Class 1 obesity in adult 07/05/2016 [...] pain 04/28/2015 Fatigue 04/28/2015 Moderate persistent asthma 04/28/2015 Thyroid nodule 04/28/2015 Vitamin D deficiency 04/28/2015 Allergic rhinitis 01/21/2015 Overview (11/23/2024): Allergic rhinitis Chronic wheezy bronchitis 08/27/2014 Overview (11/23/2024): Chronic asthmatic bronchitis Degeneration of [...] Encounters Date Type Department Care Team Description 05/27/2025 11:20 AM UTILITY MAINTENANCE WORKER [facility] [address] [place] [address] Rehan Bhatt MD Follow Up 05/27/2025 Travel 03/28/2025 MyChart Message [facility] [address] [place] [address] Rehan Bhatt MD Updating pharmacy and getting refills from Last 3 Months Immunizations Immunization Administration Dates Next Due Afluria 36 MONTHS+ (Prefilled Syringe IIV4) 08/2019 Dtap 07/18/2002 Dtap (Acel-Immune) 07/18/2002 Influenza Adult (Generic) 07/19/2019 ROXANNA (HIRA & HIRA) COVID-19 AD26 VACCINE 0.5 ML IM SUSP 09/22/2020 MODERNA COVID-19 (DEWER TASHA FREIDA), MRNA, LNP-S, PF, 50 MCG/ 0.25 ML DOSE 08/04/2021 Pneumococcal (Pneumovax 23) 01/08/2017, 7 Family History Medical History Relation Comments Arthritis Maternal Grandmother Allergies Mother Arthritis Mother CVA Mother Diabetes Mother HTN Mother Hypertension Mother Stroke Mother Thyroid Mother Relation Status Comments Maternal Grandmother Alive Mother Social History Tobacco Use Types Packs/Day Years Used Date Smoking Tobacco: Never Smokeless Tobacco: Never Tobacco Cessation:Counseling Given: Yes Alcohol Use Standard Drinks/Week Comments Not Currently 0 (1 standard drink = 0.6 oz pure alcohol) I drink maybe once a year if that PHQ-2 Answer Date Recorded Patient Health Questionnaire-2 Score 0 05/14/2024 Comments No Sex and Gender Information Value Date Recorded Sex Assigned at Female 03/11/2025 12:53 PM CDT Legal Sex Female 6:29 PM CDT Gender Identity Not on file Sexual Orientation Not on file Last Filed Vital Signs Vital Sign Reading Time Taken Comments Blood Pressure 135/87 05/27/2025 11:26 AM UTILITY MAINTENANCE WORKER Pulse 78 05/27/2025 11:26 AM UTILITY MAINTENANCE WORKER Temperature 36.7 C (98 F) 05/14/2024 8:20 AM CDT Respiratory Rate 18 05/27/2025 11:2 6 AM UTILITY MAINTENANCE WORKER Oxygen Saturation 99% 05/27/2025 11: 26 AM UTILITY MAINTENANCE WORKER RA Inhaled Oxygen Concentration - - Weight 72.4 kg (159 lb 11.2 oz) 025 11:26 AM UTILITY MAINTENANCE WORKER Height 162.6 cm (5' 4) 05/27/2025 11:2 6 AM UTILITY MAINTENANCE WORKER Body Mass Index 27.41 05/27/2025 11:26 AM UTILITY MAINTENANCE WORKER Plan of Treatment Upcoming Encounters Date Type Department Care Team (Late st Contact Info) Description 11/28/2025 11:20 AM CDT Office Visit [facility] [address] [place] [id number] Rehan Bhatt MD [address] [place] [address] Health Maintenance Due Date Last Done Comments Colorectal Cancer Screening Colonoscopy (10 Years) 1973 Annual Physical 1976 Hepatitis C 1991 Hepatitis B Vaccines (1 of 3 - 19+ 3-dose series) 1992 DTaP, Tdap and Td Vaccines (3 - Tdap) 07/18/2012 07/18/2002, 07/18/2002 Mammogram Screening 2013 Pneumococcal Vaccine: 50+ Years (2 of 2 - PCV) 01/08/2018 01/08/2017, 12/19/2016 Zoster Vaccines (1 of 2) 2023 PHQ-2 (Physician [place]) 07/18/2024 05/14/2024 COVID-19 Vaccine ( season) 2025 08/04/2021, 08/04/2021, 02/12/2021, Additional history exists Influenza Adult (#1) 2025 07/19/2019, 07/19/19 20 Hepatitis A Vaccines Aged Out No long er eligible based on patient's age to complete this topic Meningococcal B Vaccine Aged Out No l onger eligible based on patient's age to complete this topic Meningococcal Vaccine Aged Out No hector caro eligible based on patient's age to complete this topic RSV Immunizations Under 20 Months Aged Out No longer eligible based on patient's age to complete this topic Insurance [facility] Advance Directives * Full Code (Latest Code Status on File) Date Activated Date Inactivated Comments 07/18/2019 1:44 PM 07/19/2019 3:14 PM Care Teams Record Tabulating Clerk Relationship Specialty Start Date End Date Mirlande Sales PA PCP - General PHYSICIAN STAKE SETTER 07/18/19
[2025-06-21 11:42] VITALS: BP 133/87; PULSE 96; RESP 20; TEMP 36.5; O2SAT 99
[2025-06-21 12:08] VITALS: BP 119/78; PULSE 94; RESP 16; O2SAT 97
--- NOTE | 2025-06-21 12:18 | ED_ITS ---
HPI - Headache General Chief Complaint: Headache Stated Complaint: headache Time Seen by Provider: 06/21/25 12:11 Source: patient and family Mode of arrival: ambulatory Limitations: no limitations History of Present Illness HPI Narrative: Intermittent sharp stabbing pain at the top of the head more to the right side started 2 days ago. History of migraine headache. Patient reported this headache is different than her migraine. Patient report headache triggered by light, sometime associated with difficult talking because of the pain.. Patient denies any fever, chills, nausea, vomiting, diarrhea, constipation, chest pain or shortness of breath. Patient reported the headache associated with lightheadedness, dizziness, blurry vision. Patient is telling me that she been seen by at least 6 specialist including ENT and junior programmer and neurologist Related Data Home Medications ?Medication ?Instructions ?Recorded ?Confirmed ?Last Taken ?Type albuterol sulfate 90 mcg/actuation 2 puff inhalation Q ID PRN 06/27/19 05/14/25 08/22/19 07:30 History aerosol inhaler Shortness Of Breath Or Wheez ing tapentadol 50 mg tablet (Nucynta) 50 mg PO BID PRN Uma n 06/27/19 05/14/25 Unknown History cetirizine 10 mg capsule (Zyrtec) 10 mg PO DAILY 08/1605/14/25 08/21/19 History paroxetine HCl 20 mg tablet (Paxil) 40 mg PO HS 05/14/25 Unknown History cyclobenzaprine 10 mg tablet 10 mg PO TID PRN Spasms 0 12/17/21 05/14/25 Unknown History dextroamphetamine-amphetamine 30 30 mg PO DAILY 05/14/25 Unknown History mg tablet (Adderall) metaxalone 400 mg tablet 800 mg PO TID PRN Spasms 08/0905/14/25 Unknown History Allergies Allergy/AdvReac Type Severity Reaction Status Date / Time morphine Allergy Severe Migraine Verified 05/14/25 11:20 povidone-iodine (From Allergy Severe Rash Verified 05/14/25 11:20 Betadine) yellow dye Allergy Severe Rash Verified 05/14/25 11:20 Penicillins Allergy Intermediate THROAT Verified 05/14/25 11:20 ITCHING AND SWELLING prochlorperazine Allergy Intermediate HIVES Verified 05/14/25 11:20 Review of Systems 2 Review of Systems: All systems reviewed & are unremarkable except as noted in HPI and below PMFSH Past Medical History Medical History History of stress test (~07/2019) Diverticulosis IBS (irritable bowel syndrome) Fibromyalgia Dysphagia Endometriosis Hemorrhoids Gastroesophageal reflux disease Asthma Surgical History Surgical History History of colonoscopy approx 2021 History of endometrial ablation (~2008) with Tubal Ligation History of hysterectomy (~2012) History of Juju fundoplication (~2015) History of sinus surgery (~2002) History of sinus surgery (~2000) History of cholecystectomy (~1999) History of Juju fundoplication (~1999) Family History Family History Other Family history of arthritis Family history of mental disorder Social History Social History Smoking status: Never smoker Alcohol intake: current Alcohol use details: rare Substance use: never Substance use type: does not use Living arrangements: with family Gender identity (if verbalized by the patient): Female Spiritual care concerns: No Exam 2 Narrative: General appearance: Well-developed, well-nourished Skin: Normal color Head: Normocephalic, nontraumatic Eyes: Clear conjunctiva ENT: Oropharynx normal, ears normal, nose normal Neck: Supple, nontender Chest and respiratory: Airway patent, no respiratory distress, no accessory muscle use Heart: Regular rate/rhythm Abdomen: Soft, nontender, no organomegaly, quiet bowel sounds Vascular: Normal peripheral pulses, normal capillary refill. Musculoskeletal: Normal range of motion, nontender back Neurologic: Alert and oriented ?3, INDUSTRIAL DESIGNER is normal as tested, no gross motor deficit Course Vital Signs Vital signs: Vital Signs Temperature 36.5 C 06/21/25 11:42 Pulse Rate 96 06/21/25 11:42 Respiratory Rate 20 06/21/25 11:42 Blood Pressure 133/87 06/21/25 11:42 Pulse Oximetry 99 06/21/25 11:42 Oxygen Delivery Room Air 06/21/25 11:42 Temperature 36.5 C 06/21/25 11:42 Pulse Rate 84 06/21/25 14:37 Respiratory Rate 16 06/21/25 14:37 Blood Pressure 122/79 06/21/25 14:37 Pulse Oximetry 100 06/21/25 14:37 Oxygen Delivery Room Air 06/21/25 11:42 [facility] Narrative Medical decision making narrative: Patient presents with headache Vital signs are stable Physical examination is unremarkable Differential diagnosis anxiety like symptoms, migraine headache, less likely intracranial pathology or temporalis arthritis. Blood workup today includes CBC, CMP, sed rate showed WITHIN NORMAL LIMIT CT head without contrast showed NO ACUTE ABNORMALITY PATIENT'S SYMPTOM RESOLVED AFTER IV FLUID TORADOL REGLAN AND BENADRYL. DIAGNOSIS HEADACHE, UNSPECIFIED THE PT WAS DISCHARGED TO HOME.THE PT,S CONDITION UPON DISCHARGE WAS FAIR,EDUCATION WAS PROVIDED TO THE PT IN REFERENCE TO THE FINAL IMPRESSION,DISCHARGE STUDY RESULTS,TREATMENT,PROGNOSIS AND NEED FOR FOLLOW UP . Differential Diagnosis Differential Diagnosis: As above Medical Records I have reviewed the following patient records and this information was taken into consideration when formulating the assessment and plan.: previous labs, previous ER visits, previous hospitalizations and previous clinic visits Lab Data [facility] Lab Attestation statement: I personally reviewed the patient's lab results. 06/21/25 12:56 06/21/25 12:56 Labs: Lab Results 06/21/25 06/21/25 Range/Units 12:56 12:56 WBC 6.6 (4.5-10.0) K/mm3 RBC 4.90 (4.2-5.4) M/mm3 Hgb 15.6 H (12.0-15.0) g/dL Hct 44.3 (37.0-47.0) % MCV 90.4 (80-100) fl MCH 31.8 (26-34) pg MCHC 35.2 (32-36) g/dl RDW 13.4 (11.5-14.5) % Plt Count 237 (150-375) k/mm3 MPV 9.7 (7.4-10.4) fl Immature Gran % (Auto) 0.5 (0-0.5) % Neut % (Auto) 69.4 (45.5-73.1) % Lymph % (Auto) 21.3 (18.3-44.2) % [place] % (Auto) 8.6 H (2.6-8.5) % Eos % (Auto) 0.0 (0-4.4) % Baso % (Auto) 0.2 (0.2-1.2) % Lymph # (Auto) 1.41 (0.9-3.2) K/mm3 [place] # (Auto) 0.6 (0.1-0.6) K/mm3 Eos # (Auto) 0.0 (0-0.3) K/mm3 Baso # (Auto) 0.0 (0.0-0.1) K/mm3 Abs Immat Gran (auto) 0.03 (0.00-0.031) K/mm3 Absolute Neuts (auto) 4.6 (1.3-6.7) K/mm3 Absolute Nucleated RBC 0.000 (0.0-0.012) K/mm3 Nucleated RBC % 0.0 (0.0-0.2) % ESR 22 H Cancelled (0-20) mm/hr Sodium 137 (137-145) mmol/L Potassium 3.5 (3.4-5.0) mmol/L Chloride 105 (98-107) mmol/L Carbon Dioxide 30 (22-30) mmol/L Anion Gap 2 L (4-12) mmol/L BUN 10 (7-17) mg/dL Creatinine 0.77 (0.7-1.0) mg/dL Estim Creat Clear Calc 74 ml/min Estimated GFR > 60 (59 - ) Glucose 92 (65-110) mg/dL Calcium 8.9 (8.4-10.2) mg/dL Total Bilirubin 0.7 (0.2-1.3) mg/dL AST 20 (14-36) U/L ALT 18 (6-35) U/L Alkaline Phosphatase 53 (38-126) U/L Total Protein 6.8 (6.3-8.2) g/dL Albumin 3.7 (3.5-5.1) g/dL Imaging Data Radiologist's impression: ITS Impressions Head CT 06/21/25 13:37 IMPRESSION: 1. No acute intracranial findings. Critical Care Time Critical Care Time Critical Care Time: No Time Type: Intermittent Initial evaluation, discuss w/ involved parties, attempting to gather old records: N/A Documenting medical record: 10 minutes Review of results (EKG's, labs, imaging): 5 minutes Serial repeat bedside evaluation: 10 minutes Discussing case with multiple memebers of the care team and consultants: N/A Total Critical Care Time: 25 Discharge Plan Discharge Clinical Impression: Headache Patient Disposition: Home Condition: Improved Instructions: Acute Headache (DC) Additional Instructions: RETURN IF SYMPTOMS ARE WORSENING , CALL YOUR FAMILY PHYSICIAN FOR APPOINTMENT, TAKE TYLENOL NEEDED FOR ACHES AND PAIN, CONTINUE HOME MEDICATIONS. Patient Language: Macedonian Prescriptions: No Action dextroamphetamine-amphetamine [Adderall] 30 mg tablet 30 mg PO DAILY cyclobenzaprine 10 mg tablet 10 mg PO TID PRN (Reason: Spasms) dicyclomine 10 mg capsule 10 mg PO TID Qty: 90 3RF paroxetine HCl [Paxil] 20 mg Tablet 40 mg PO HS Zyrtec 10 mg Capsule 10 mg PO DAILY metaxalone 400 mg Tablet 800 mg PO TID PRN (Reason: Spasms) hydrocodone-acetaminophen 5-325 mg tablet 1 tablet PO Q4H PRN (Reason: pain) Qty: 20 0RF clindamycin HCl [Cleocin HCl] 300 mg capsule 300 mg PO BID 5 Days Qty: 9 0RF Rx Instructions: rec'd first dose in ED albuterol sulfate 90 mcg/actuation HFA aerosol inhaler 2 puff INHALATION QID PRN (Reason: Shortness Of Breath Or Wheezing) Nucynta 50 mg tablet 50 mg PO BID PRN (Reason: Pain) omeprazole 40 mg capsule,delayed release(DR/EC) 40 mg PO DAILY Qty: 30 2RF Follow-up/Referrals: Henrry,CHANCE Nogueira [Primary Care Provider, Unknown] Stand Alone Forms: Work/School Release IP
--- OUTSIDE RECORDS SUMMARY | 2025-06-21 12:44 | XMS_ITS | Clinical Summary ---
Author Organization [facility] Address [address] [place] [address] Care Team Providers Care Master Carpenter Name Role Phone Mirlande Bedoya Primary Care Pr ovider Darwin Cavazos MD Unavailable [phone] [facility],non-owned Affiliates and Associated Physician Practices is amultiple site organization consisting of ambulatory clinics and hospital sitesin [place], [place], [place] and [place]. This disclosure is being madepursuant to the Care Everywhere program and may not contain all information available regarding this patient. Last updated 18.[facility] Allergies Active Allergy Reactions Criticality [...] 1 6 Active vitamin D, ergocalciferol, (DRISDOL) 29085 UNITS capsule Take 50,000 Units by mouth [...] Comments Blood Pressure 118/76 06/06/2023 12:37 PM PRINCIPAL PROGRAMMER Pulse 66 06/06/2023 12:37 PM PRINCIPAL PROGRAMMER Temperature 36.4 C (97.6 F) 06/06/2023 12:37 PM PRINCIPAL PROGRAMMER Respiratory Rate 18 09/19/2017 3:17 PM PRINCIPAL PROGRAMMER Oxygen Saturation 98% 12/28/2022 2:23 PM CDT Inhaled Oxygen Concentration - - Weight 86.8 kg (191 lb 6.4 oz) 06/06/2023 12:37 PM PRINCIPAL PROGRAMMER Height 162.6 cm (5' 4) 06/06/2023 12:37 PM PRINCIPAL PROGRAMMER Body Mass Index 32.85 06/06/2023 12:37 PM PRINCIPAL PROGRAMMER Plan of Treatment Health Maintenance Due Date [...] this topic Medical Devices Implanted Type Area Patient Admitting Representative Device Identifier Shelf Expiration Date Model / Serial / Lot Graft Tissue Sis Es Prcn Aclr Clgn Mtrx Implanted:Qty: 1 on 05/27/2016 by Darwin Cavazos MD at [facility] Abdomen [employer] 08/31/2017 [id number] / / [id number] Procedures Procedure Name Priority Date/Time Associated Diagnosis Comments COMPREHENSIVE METABOLIC PANEL 06/28/2022 8:13 AM PRINCIPAL PROGRAMMER from Last 3 Months or Most Recently Relevant to Health Maintenance Results * COMPREHENSIVE METABOLIC PANEL (06/28/2022 8:13 AM PRINCIPAL PROGRAMMER) Glucose 85 65 - 99 mg/dL [facility] [...] 29 U/L [facility] Comment: Test Performed at: [facility] [address] [place] [address] LINDSEY MONTANA DO,MPH 06/28/2022 8:13 AM PRINCIPAL PROGRAMMER 06/28/2022 8:14 AM PRINCIPAL PROGRAMMER us Morales Alcazar MD LAB - CHEMISTRY ORDERABLES Final Result [facility] [id number] [place] [address] from Last 3 Months or Most Recently Relevant to Health Maintenance Insurance [employer] Advance Directives * Full Code (Latest Code Status on File) Date Activated Date Inactivated Comments 05/27/2016 12:35 PM 05/28/2016 3:28 PM Care Teams Master Carpenter Relationship Specialty Start Date End Date Mirlande Bedoya PA [address] [place] [address] PCP - General Physician Lead Radiologic Technologist 01/26/16 Darwin Cavazos MD [facility] [facility] [address] [place] [address] Surgery 04/26/16
--- OUTSIDE RECORDS SUMMARY | 2025-06-21 12:44 | XMS_ITS | Clinical Summary ---
Author Organization [facility] Address [address] [place] [address] Care Team Providers Care Stock Ranch Supervisor Name Role Phone Mirlande Sales Primary Care Provider [phone] Allergies Active Allergy Reactions Criticality Noted Date Comments Prochlorperazine Hives 07/18/2019 Lidocaine Unknown 11/23/2024 Morphine Headache 07/18/2019 Penicillins Throat swelling 07/18/2019 Povidone Iodine Itching,Rash,Swelling Medium 2 Tape Unknown 03/06/2024 Tartrazine Unknown 12/22/2022 Yellow Dye #6 ([place] Yellow) Rash Low 2019 Medications albuterol (2.5 MG/3ML) 0.083% nebulizer solution Take 2.5 mg by nebulization every 6 (six) hours as needed for Wheezing. Active spironolactone 100 MG tablet Take 1 tablet (100 mg total) by mouth daily. Active vitamin D2, ergocalciferol, 72573 UNITS capsule Take 1 capsule (50,000 Units [...] Department Care Team Description 05/27/2025 11:20 AM REINFORCING STEEL WORKER WIRE MESH [facility] [address] [place] [address] Rehan Bhatt MD Follow Up 05/27/2025 Travel 03/28/2025 MyChart Message Enc [facility] [address] [place] [address] Rehan Bhatt MD Updating pharmacy and getting refills from Last 3 Months Immunizations Immunization Administration Dates Next Due Afluria 36 MONTHS+ (Prefilled Syringe IIV4) 08/2019 Dtap 07/18/2002 Dtap (Acel-Immune) 07/18/2002 Influenza Adult (Generic) 07/19/2019 ROXANNA (HIRA & HIRA) COVID-19 AD26 VACCINE 0.5 ML IM SUSP 09/22/2020 MODERNA COVID-19 (VERIFICATION SPECIALIST TASHA FREIDA), MRNA, LNP-S, PF, 50 MCG/ [...] Comments Blood Pressure 135/87 05/27/2025 11:26 AM REINFORCING STEEL WORKER WIRE MESH Pulse 78 05/27/2025 11:26 AM REINFORCING STEEL WORKER WIRE MESH Temperature 36.7 C (98 F) 05/14/2024 8:20 AM CDT Respiratory Rate 18 05/27/2025 11:2 6 AM REINFORCING STEEL WORKER WIRE MESH Oxygen Saturation 99% 05/27/2025 11: 26 AM REINFORCING STEEL WORKER WIRE MESH RA Inhaled Oxygen Concentration - - Weight 72.4 kg (159 lb 11.2 oz) 025 11:26 AM REINFORCING STEEL WORKER WIRE MESH Height 162.6 cm (5' 4) 05/27/2025 11:2 6 AM REINFORCING STEEL WORKER WIRE MESH Body Mass Index 27.41 05/27/2025 11:26 AM REINFORCING STEEL WORKER WIRE MESH Plan of Treatment Upcoming Encounters Date Type Department Care Team (Late st Contact Info) Description 11/28/2025 11:20 AM CDT Office Visit [facility] Multispecialty Care - [facility] [address] [place] [id number] Rehan Bhatt MD [address] [place] [address] Health Maintenance Due Date Last Done Comments [...] Vaccines (1 of 2) 2023 PHQ-2 (Physician [place]) 07/18/2024 05/14/2024 COVID-19 Vaccine ( season) 2025 [...] patient's age to complete this topic Insurance [facility] Advance Directives * Full Code (Latest Code Status on File) Date Activated Date Inactivated Comments 07/18/2019 1:44 PM 07/19/2019 3:14 PM Care Teams Stock Ranch Supervisor Relationship Specialty Start Date End Date Mirlande Sales PA PCP - General PHYSICIAN TECHNOLOGY ARCHITECT 07/18/19
--- OUTSIDE RECORDS SUMMARY | 2025-06-21 12:44 | XMS_ITS | Clinical Summary ---
Author Organization [address] Address [address] [place] [address] Care Team Providers Care Java Software Engineer Name Role Phone Henrry Mirlande HOWARD Primary [...] at the [facility] [place]. She is going to consider that. Tonsil [...] 06/05/2019 Assessment & Plan (06/05/2019 1:12 PM TOWNSHIP SUPERVISOR): Check 25 OH vit D Adjust dose [...] Metformin Assessment & Plan (06/05/2019 1:11 PM TOWNSHIP SUPERVISOR): Diet and exercise Continue metformin Assessment & [...] Aldactone Assessment & Plan (06/05/2019 1:12 PM TOWNSHIP SUPERVISOR): Increase aldactone 100 mg bid Check T [...] Type Department Care Team Description 06/10/2025 Telephone [facility] Diabetes and Endocrinology [address] [place] [address] Nimo Fajardo, GUARD CHIEF Refill request (Christopher) from Last 3 Months Immunizations Immunization Administration Dates Next Due DTaP 07/18/2002 Influenza, Quadrivalent, Spl it, Preservative Free, Intramuscular 07/19/2019 [employer] ([employer]) SARS-CoV-2 Vaccination 09/22/2020 Pneumococcal Polysaccharide PPV23 [...] diabetes mellitus Diabete s type 2; Comments: [facility] 06/12/2014 - Hx Other Medical abnormal PAP; C omments: [facility] 06/12/2014 - Hx Other Medical bronchiectasis; Comments: [facility] 06/12/2014 - Hx Other Medical chronic back pa in; Comments: [facility] 06/12/2014 - Anxiety disorder Anxiety Chronic obstructive pulmonary disease COPD Depression Depression Hypertension Hypertension Hx Other Medical chronic sinusit is; Comments: [facility] 06/12/2014 - Hx Other Medical tremor; Comment s: [facility] 06/12/2014 - Hx Other Medical 2013 hysterectomy [...] on file Legal Sex Female 9:05 PM TOWNSHIP SUPERVISOR Gender Identity Not on file Sexual Orientation [...] to request sample to be sent to [facility] for Hepatitis C Virus (HCV) RNA Detection and Quantitation by Real-Time Reverse Kiln Pusher-PCR (RT-PCR). Current interpretive data was last revised [...] Relevant to Health Maintenance Insurance [facility] Care Teams Java Software Engineer Relationship Specialty Start Date End Date Mirlande Sales PA PCP - General 10/15/16
--- OUTSIDE RECORDS SUMMARY | 2025-06-21 12:44 | XMS_ITS | Clinical Summary ---
Author Organization [facility] Address [address] [facility] [place] [address] Care Team Providers Care Woodworking Machine Offbearer Name Role Phone Pcp, No Primary Care Provider [phone] Social History Tobacco Use Types Packs/Day Years Used Date Smoking Tobacco: Never Assessed Comments Unknown Sex and Gender Information Value Date Recorded Sex Assigned at Not on file Legal Sex Female 3:41 PM EST Gender Identity Not on file Sexual Orientation Not on file Plan of Treatment Not on file Medical Devices Not on file [place] [address] [address] [place] [address] Care Teams Woodworking Machine Offbearer Relationship Specialty Start Date End Date Pcp, Mariya PCP - General Family Medicine 07/16/20
--- OUTSIDE RECORDS SUMMARY | 2025-06-21 12:44 | XMS_ITS | Encounter Summary ---
Author Organization [facility] Address [address] [place] [address] Care Team Providers Care Transportation Planner Name Role Phone Mirlande Sales Primary Care Provider [phone] Encounter Details Date Type Department Care Team (Late st Contact Info) Description 01/12/2023 MyChart Message Enc [facility] - [facility] [address] [place], [place] [id number] [employer], [facility] Provider Air Quality Message Social History Tobacco [...] Assessment Author Status No 07/19/2019 12:32 PM SENIOR INSTRUMENTATION ENGINEER Acti ve * RETIRED Are you blind or do you have serious difficulty seeing, even when wearing glasses? Answer Date of Assessment Author Status No 07/19/2019 12:32 PM SENIOR INSTRUMENTATION ENGINEER Acti ve * Do you have serious difficulty walking or climbing stairs? Answer Date of Assessment Author Status No 07/19/2019 12:32 PM SENIOR INSTRUMENTATION ENGINEER Tati Muhammad RN Active * Do you [...] Description 11/28/2025 11:20 AM CDT Office Visit [facility] Multispecialty Care - [facility] [address] [place] [address] Rehan Bhatt MD [address] [place] [address] documented as of this encounter Visit Diagnoses Not on filedocumented in this encounter Additional Health Concerns Assessment Noted Time PHQ-9 Depression Total Score: 0 01/01/20 21 9:09 AM CDT documented as of this encounter Care Teams Transportation Planner Relationship Specialty Start Date End Date Mirlande Sales PA PCP - General PHYSICIAN SYSTEM DEVELOPER ASSOCIATE MANAGER 07/18/19 documented as of this encounter
[2025-06-21 13:15] LABS: Hematocrit 44.3 % (37.0-47.0); Hemoglobin 15.6 g/dL (12.0-15.0); Immature Granulocyte Percent A 0.5 % (0-0.5); Lymphocytes Absolute Auto 1.41 K/mm3 (0.9-3.2); Mean Corpuscular HGB Conc 35.2 g/dl (32-36); Mean Corpuscular Hemoglobin 31.8 pg (26-34); Mean Corpuscular Volume 90.4 fl (80-100); Nucleated Red Blood Cells Absolute Auto 0.000 K/mm3 (0.0-0.012); Nucleated Red Blood Cells Perc 0.0 % (0.0-0.2); Platelet Count Result 237 k/mm3 (150-375); Red Blood Count 4.90 M/mm3 (4.2-5.4); White Blood Count 6.6 K/mm3 (4.5-10.0)
[2025-06-21 13:20] LABS: Alanine Aminotransferase 18 U/L (6-35); Albumin Level 3.7 g/dL (3.5-5.1); Alkaline Phosphatase 53 U/L (38-126); Anion Gap 2 mmol/L (4-12); Aspartate Amino Transferase 20 U/L (14-36); Bilirubin,Total 0.7 mg/dL (0.2-1.3); Blood Urea Nitrogen 10 mg/dL (7-17); Calcium 8.9 mg/dL (8.4-10.2); Carbon Dioxide 30 mmol/L (22-30); Chloride 105 mmol/L (98-107); Estimated CRCL calculation 74 ml/min; Estimated Glomerular Filt Rate > 60; Glucose 92 mg/dL (65-110); Potassium 3.5 mmol/L (3.4-5.0); Sodium 137 mmol/L (137-145); Total Protein 6.8 g/dL (6.3-8.2)
[2025-06-21] MEDS: METOCLOPRAMIDE HCL INJ 10 MG/2 ML VIAL IV PUSH (13:29)
[2025-06-21] MEDS: KETOROLAC 30 MG/ML VIAL (*BKC) IV PUSH (13:31)
[2025-06-21] MEDS: SODIUM CHLORIDE 0.9% IV 1,000 ML 999 ML IV CONT (13:33)
[2025-06-21 14:37] VITALS: BP 122/79; PULSE 84; RESP 16; O2SAT 100
== END 2025-06-21 14:38 | disposition home or self-care (01) ==
PROVIDERS: Emergency Provider Emergency Medicine; PCP Physician Assistant
DX: R51.9 Headache, unspecified (principal); J45.909 Unspecified asthma, uncomplicated; M79.7 Fibromyalgia; N80.9 Endometriosis, unspecified; K58.9 Irritable bowel syndrome, unspecified; K21.9 Gastro-esophageal reflux disease without esophagitis; Z90.710 Acquired absence of both cervix and uterus; Z90.49 Acquired absence of other specified parts of digestive tract
CPT/HCPCS: 36415; 70450; 80053; 85025; 85652; 96361; 96374; 96375; 99284; J1200; J1885; J2765; J7030